=== PATIENT | male | born 1965 | race Caucasian/White ===

== ENCOUNTER 2019-11-06 17:47 | Emergency (ER) | payer BC, SELFPAY ==
--- NOTE | ~2019-11-06 | CT_ITS ---
CT thoracic lumbar wo con DATE: 11/06/2019 18:44 INDICATION: Fall. Back injury, mid and low back pain TECHNIQUE: Axial images were obtained through the thoracic and lumbar spine; sagittal and coronal rec onstructions. Exam dose: 1619.81 mGy-cm total exam DLP. COMPARISON: None FINDINGS: There is mild anterior wedging of T9 and mild/moderate anterior wedging of T10 vertebral kary dies, which appear chronic, likely due to old compression fractures. No other fracture or bone destruction of the thoracic or lumbar spine is evident. No spondylolisthesi s. There are mild degenerative changes of the thoracic and lumbar spine. Incidentally noted is a suture line of the sigmoid colon. The appendix is normal. Normal caliber of t he abdominal aorta. IMPRESSION: Mild to moderate chronic compression fracture deformities of T9 and T10; no recent fractu re of the thoracic or lumbar spine Degenerative changes of the thoracic and lumbar spine Reviewed, dictated and finalized at [facility]. Reviewed, dictated and finalized at location A. IMPRESSION: Mild to moderate chronic compression fracture deformities of T9 and T10; no recent fracture of the thoracic or lumbar spine Degenerative changes of the thoracic and lumbar spine
[2019-11-06 17:50] VITALS: BP 147/69; PULSE 63; RESP 16; TEMP 36.9; O2SAT 99
--- NOTE | 2019-11-06 17:56 | ED.BACK ---
HPI - Back Pain/Injury General Chief Complaint: Back Pain/Injury <Cathleen Ghotra MD - Last Filed: 11/06/19 19:04> Stated Complaint: back pain/injury <Cathleen Ghotra MD - Last Filed: 11/06/19 19:04> Time Seen by Provider: 11/06/19 17:56 <Cathleen Ghotra MD - Last Filed: 11/06/19 19:04> Source: patient <Cathleen Ghotra MD - Last Filed: 11/06/19 19:04> Mode of arrival: ambulatory <Cathleen Ghotra MD - Last Filed: 11/06/19 19:04> Limitations: no limitations <Cathleen Ghotra MD - Last Filed: 11/06/19 19:04> History of Present Illness HPI Narrative: Patient is a 54-year-old male who presents for evaluation of back pain. Patient states he slept well descending 3 steps to get onto a boat, hitting his back on one of the steps or boat railing. Patient denies neck pain, no loss of consciousness. Patient states bruising about the middle back, increased pain with bending. Patient has been ambulatory. No urinary retention or saddle anesthesia. No cancer history. No history of osteoporosis. Patient reports pain is sharp, spasm-like in nature without radiation into the buttocks or flanks. Patient has taken Aleve with minimal improvement. <Cathleen Ghotra MD - Last Filed: 11/06/19 19:04> Related Data Allergies/Adverse Reactions: Allergies Allergy/AdvReac Type Severity Reaction Status Date / Time No Known Allergies Allergy Verified 11/06/19 17:53 <Cathleen Ghotra MD - Last Filed: 11/06/19 19:04> Review of Systems Review of Systems: Narrative: CONSTITUTIONAL: Denies fever CARDIOVASCULAR: Denies chest pain RESPIRATORY: Denies cough or dyspnea. GASTROINTESTINAL: Denies abdominal pain SKIN: Denies rash MUSCULOSKELETAL: Reports middle lower back pain NEUROLOGIC: Denies headache <Cathleen Ghotra MD - Last Filed: 11/06/19 19:04> [facility] Social History Social History: Social History Smoking status: Never smoker Alcohol intake: current <Cathleen Ghotra MD - Last Filed: 11/06/19 19:04> Exam Narrative: Exam Narrative: GENERAL: Awake, alert, conversant HEAD: Normocephalic, atraumatic. EYES: PERRLA and EOMI. ENT: Nares clear, no rhinorrhea or epistaxis. Mucous membranes moist. NECK: Supple. CHEST: No respiratory distress, breathing even and non labored HEART: Regular rate, sinus rhythm ABDOMEN:Non distended, non tender Thorax: Midline lower thoracic and lumbar tenderness over T10-L2. Positive paraspinal tenderness as well. There is ecchymosis over the midline. EXTREMITIES: Normal range of motion. No edema. SKIN: Warm, dry, no rash. NEURO:No focal deficits. Alert and oriented x3. Patient is ambulatory with a narrow based, steady gait. <Cathleen Ghotra MD - Last Filed: 11/06/19 19:04> Course Vital Signs Vital signs: Vital Signs Temperature 98.5 F 11/06/19 17:50 Pulse Rate 63 11/06/19 17:50 Respiratory Rate 16 11/06/19 17:50 Blood Pressure 147/69 H 11/06/19 17:50 Pulse Oximetry 99 11/06/19 17:50 Temperature 98.5 F 11/06/19 17:50 Pulse Rate 63 11/06/19 17:50 Respiratory Rate 16 11/06/19 17:50 Blood Pressure 147/69 H 11/06/19 17:50 Pulse Oximetry 99 11/06/19 17:50 <Cathleen Ghotra MD - Last Filed: 11/06/19 19:04> Vital Signs Temperature 98.5 F 11/06/19 17:50 Pulse Rate 63 11/06/19 17:50 Respiratory Rate 16 11/06/19 17:50 Blood Pressure 147/69 H 11/06/19 17:50 Pulse Oximetry 99 11/06/19 17:50 Temperature 98.5 F 11/06/19 17:50 Pulse Rate 63 11/06/19 17:50 Respiratory Rate 16 11/06/19 17:50 Blood Pressure 147/69 H 11/06/19 17:50 Pulse Oximetry 99 11/06/19 17:50 <Bandar Leonard MD - Last Filed: 11/06/19 19:41> MDM - Back Pain/Injury Imaging Data Radiologist's impression: ITS Impressions Thoracic/Lumbar Spine CT 11/06/19 19:10 IMPRESSION: Mild to moderate chronic compression fracture d
[2019-11-06] MEDS: ACETAMINOPHEN 500 MG TABLET 1000 MG PO (18:08)
[2019-11-06 20:09] VITALS: BP 157/91; PULSE 58; RESP 18; TEMP 37.1; O2SAT 97
== END 2019-11-06 20:10 | disposition home or self-care (01) ==
PROVIDERS: Emergency Provider Emergency Medicine; PCP Internal Medicine
DX: S39.012A Strain of muscle, fascia and tendon of lower back, initial encounter (principal); S22.078A Other fracture of T9-T10 vertebra, initial encounter for closed fracture; W10.8XXA Fall (on) (from) other stairs and steps, initial encounter
CPT/HCPCS: 72128; 72131; 99284; A9270

== ENCOUNTER 2019-11-30 16:34 | Emergency (ER) | payer BC, SELFPAY ==
[2019-11-30 16:43] VITALS: BP 166/92; PULSE 73; RESP 16; TEMP 36.9; O2SAT 99
--- NOTE | 2019-11-30 17:00 | ED.SKABFB ---
HPI - Skin/Abscess/Foreign Bdy General Chief complaint: Skin/Abscess/Foreign Body <Darlene Degroot PA-C - Last Filed: 11/30/19 17:09> Stated complaint: abcess to buttocks <Darlene Degroot PA-C - Last Filed: 11/30/19 17:09> Time Seen by Provider: 11/30/19 16:38 <MARIAH Ragland Last Filed: 11/30/19 17:09> Source: patient <MARIAH Ragland Last Filed: 11/30/19 17:09> Mode of arrival: ambulatory <MARIAH Ragland Last Filed: 11/30/19 17:09> Limitations: no limitations <MARIAH Ragland Last Filed: 11/30/19 17:09> History of Present Illness HPI narrative: This is 54 year old male that presents to the ER for left buttock swelling and redness. Reports he noted the pain over the last couple of days. Reports he has been struggling with constipation and hemorrhoids due to taking prescribed pain medication. Denies fever or drainage. <Darlene Degroot PA-C - Last Filed: 11/30/19 17:09> Related Data Allergies/Adverse reactions: Allergies Allergy/AdvReac Type Severity Reaction Status Date / Time No Known Allergies Allergy Verified 11/30/19 16:49 <Darlene Degroot PA-C - Last Filed: 11/30/19 17:09> Review of Systems Review of Systems: Narrative: CONSTITUTIONAL: Denies fever SKIN: Reports redness <Darlene Degroot PA-C - Last Filed: 11/30/19 17:09> All systems reviewed & are unremarkable except as noted in HPI and below <MARIAH Ragland Last Filed: 11/30/19 17:09> [facility] Social History Social History: Social History Smoking status: Never smoker Alcohol intake: current Gender identity (if verbalized by the patient): Male <MARIAH Ragland Last Filed: 11/30/19 17:09> Exam Narrative: Exam Narrative: GENERAL: Well-appearing, well-nourished, and in no acute distress. HEAD: Normocephalic, atraumatic. EYES: EOMI. EXTREMITIES: Normal range of motion. No edema. SKIN: Warm, dry, no rash. NEURO: No focal deficits. Alert and oriented x3. PSYCH: Normal mood and affect RECTAL: Nonthrombosed external hemorrhoid present, no active bleeding. Left buttock with 5cm area of erythema vianey-rectally, tender to palpation. No central fluctuance to suggest abscess <Darlene Degroot PA-C - Last Filed: 11/30/19 17:09> Course Vital Signs Vital signs: Vital Signs Temperature 36.9 C 11/30/19 16:43 Pulse Rate 73 11/30/19 16:43 Respiratory Rate 16 11/30/19 16:43 Blood Pressure 166/92 H 11/30/19 16:43 Pulse Oximetry 99 11/30/19 16:43 Temperature 36.9 C 11/30/19 16:43 Pulse Rate 63 11/30/19 17:38 Respiratory Rate 16 11/30/19 17:38 Blood Pressure 124/64 11/30/19 17:38 Pulse Oximetry 97 11/30/19 17:38 <Darlene Degroot PA-C - Last Filed: 11/30/19 17:09> Vital Signs Temperature 36.9 C 11/30/19 16:43 Pulse Rate 73 11/30/19 16:43 Respiratory Rate 16 11/30/19 16:43 Blood Pressure 166/92 H 11/30/19 16:43 Pulse Oximetry 99 11/30/19 16:43 Temperature 36.9 C 11/30/19 16:43 Pulse Rate 63 11/30/19 17:38 Respiratory Rate 16 11/30/19 17:38 Blood Pressure 124/64 11/30/19 17:38 Pulse Oximetry 97 11/30/19 17:38 <Estuardo Delgado MD - Last Filed: 12/01/19 07:07> MDM - Skin/Abscess/Foreign Bdy MDM Narrative Medical decision making narrative: Patient presents to the emergency department for cellulitis to the left buttock. No central fluctuance or evidence of abscess at this time. He is afebrile and nontoxic-appearing. Patient will be started on oral antibiotics. He is to follow-up with primary care doctor. He was given warnings to return the ER <Darlene Degroot PA-C - Last Filed: 11/30/19 17:09> Critical Care Time Critical Care Time Critical Care Time: No <Darlene Degroot PA-C - Last Filed: 11/30/19 17:09> Discharge Plan Discharge Clinical Impression: Cellulitis <Darlene Degroot
[2019-11-30 17:38] VITALS: BP 124/64; PULSE 63; RESP 16; O2SAT 97
== END 2019-11-30 17:47 | disposition home or self-care (01) ==
PROVIDERS: Emergency Provider Emergency Medicine; PCP Internal Medicine
DX: L02.31 Cutaneous abscess of buttock (principal)
CPT/HCPCS: 99283

== ENCOUNTER 2020-03-06 11:04 | Outpatient (CLI) | payer BC, SELFPAY ==
--- NOTE | ~2020-03-06 | US_ITS ---
EXAMINATION: US pelvic limited INDICATION: Pelvic and perineal pain TECHNIQUE: High-resolution ultrasound of the pelvis is performed. COMPARISON: None available FINDINGS: No sonographically detected mass is identified. There is no evidence of herniation in the a rajat of the left pelvic scar near the patient's pain. The bladder appears unremarkable. IMPRESSION: 1. No sonographic correlate for the patient's symptoms. Reviewed, dictated and finalized at location [facility]. RA STORAGE CLERK
== END 2020-03-06 11:05 | disposition home or self-care (01) ==
PROVIDERS: PCP Internal Medicine; Visit Provider Physician Assistant
DX: R10.2 Pelvic and perineal pain (principal)
CPT/HCPCS: 76857

== ENCOUNTER 2020-03-29 06:54 | Outpatient (NON) | payer BC, SELFPAY ==
[2020-03-31 00:20] LABS: SARS-CoV-2 RNA PCR Negative
== END 2020-03-29 06:55 ==
LOC: ANHCOVIDDT 07:02
PROVIDERS: PCP Internal Medicine; Visit Provider Internal Medicine
DX: Z20.822 Contact with and (suspected) exposure to COVID-19 (principal)
CPT/HCPCS: C9803; U0003; U0005

== ENCOUNTER → 2020-04-26 09:25 | Outpatient (CLI) | payer BC, SELFPAY ==
[2020-04-26 21:58] LABS: SARS-CoV-2 RNA PCR Negative
== END ==
PROVIDERS: PCP Internal Medicine; Visit Provider Physician Assistant
DX: Z20.822 Contact with and (suspected) exposure to COVID-19 (principal)
CPT/HCPCS: C9803; U0003; U0005

== ENCOUNTER 2020-07-09 15:48 | Outpatient (CLI) | payer BC, SELFPAY ==
--- NOTE | ~2020-07-09 | XR_ITS ---
EXAMINATION: XR knee LT 3V DATE: 07/09/2020 16:09 INDICATION: Left knee joint effusion. TECHNIQUE: 3 views of left knee were obtained. COMPARISON: None. FINDINGS: Bone alignment is normal. No fracture. There is mild tricompartmental osteoarthritis charac terized by tiny marginal osteophytes. No knee joint effusion. There is prepatellar soft tissue swelli ng, consistent with bursitis. IMPRESSION: 1. Mild left knee osteoarthritis. 2. Prepatellar bursitis. Reviewed, dictated and finalized at location A.
--- NOTE | ~2020-07-09 | XR_ITS ---
EXAMINATION: XR finger 1st RT min 2V DATE: 07/09/2020 16:10 INDICATION: Pain at the proximal right thumb TECHNIQUE: Dorsal palmar, lateral and oblique views of the right first digit were obtained COMPARISON: None FINDINGS: Alignment is normal. No fracture. Mild osteoarthritis at the triscaphe, first carpometacarpal and fir st metacarpophalangeal joints. No cortical erosions. Small bone island at the base of the second midd le phalanx. Mild soft tissue swelling about the head of the first metacarpal. IMPRESSION: 1. Mild osteoarthritis at the triscaphe, first carpometacarpal and first metacarpophalangeal joints. Reviewed, dictated and finalized at location A. IMPRESSION: 1. Mild osteoarthritis at the triscaphe, first carpometacarpal and first metaca rpophalangeal joints.
== END 2020-07-09 15:49 | disposition home or self-care (01) ==
PROVIDERS: PCP Internal Medicine; Visit Provider Physician Assistant
DX: M25.462 Effusion, left knee (principal); M79.644 Pain in right finger(s); M17.12 Unilateral primary osteoarthritis, left knee; M71.562 Other bursitis, not elsewhere classified, left knee; M19.041 Primary osteoarthritis, right hand
CPT/HCPCS: 73140; 73562

== ENCOUNTER 2020-08-04 10:49 | Emergency (ER) | payer BC, SELFPAY ==
--- NOTE | 2020-08-04 11:00 | ED.GENADULT ---
HPI - General Adult General Chief complaint: Upper Respiratory Infection Stated complaint: sinus infection Time Seen by Provider: 08/04/20 11:00 Source: patient Mode of arrival: ambulatory Limitations: no limitations History of Present Illness HPI narrative: Wilver Pettit is a 55 yo male with a PMH of asthma who comes to [facility] with complaints of sinus congestion, and pain in frontal sinuses that he has been trying to manage since the beginning of July. Symptoms not improved in so he decided to be seen. He has been experiencing some exhaustion over the past 2 weeks also Related Data Home Medications Medication Instructions Recorded Confirmed fluticasone propion-salmeterol 1 inh INHALATION Q12H 08/04/20 08/04/20 [Advair Diskus] trazodone 150 mg PO HS 08/04/20 08/04/20 Allergies Allergy/AdvReac Type Severity Reaction Status Date / Time No Known Allergies Allergy Verified 07/09/20 11:07 Review of Systems Review of Systems: Narrative: CONSTITUTIONAL: Denies fever, chills, sweats. EYES: Denies visual changes, redness, discharge. ENT: Has rhinorrhea, has congestion, frontal sinus pain,sore throat, otalgia. CARDIOVASCULAR: Denies chest pain, palpitations, edema. RESPIRATORY: Denies dyspnea, wheezing, cough GASTROINTESTINAL: Denies abdominal pain, nausea, vomiting, diarrhea. GENITOURINARY: Denies dysuria, hematuria, abnormal discharge SKIN: Denies rash or itching. NEUROLOGIC: Denies numbness, or focal weakness. PSYCHIATRIC: Denies anxiety or depression. [facility] Past Medical History Medical History (Updated 08/04/20 @ 11:36 by Mary Hutchins CNP) Bradycardia Fracture of lumbar spine Gastro-esophageal reflux disease without esophagitis Hyperglycemia Perianal abscess Uncomplicated asthma Family History Family History Father Family history of liver disease Patient's father is Mother Family history of diabetes mellitus in first degree relative Social History Social History Smoking status: Never smoker Alcohol intake: current Gender identity (if verbalized by the patient): Male Comments At time of signature, I agree with nursing past medical, surgical, social and family history. There is no relevant family history pertinent to the presenting complaint. Exam Narrative: Exam Narrative: GENERAL: This is a well-nourished, well-developed patient, in mild distress. HEAD: normocephalic, atraumatic. EYES: Sclera clear/white. Vision is grossly intact. EARS: External ears normal, auditory canals clear and without drainage, TMs-fluid behind TMs. Hearing grossly intact. NOSE: External nose normal without nasal discharge, nares with redness, has rhinorrhea. THROAT: Mucous membranes moist, posterior pharynx erythema, sinus drainage NECK: Neck supple, CARDIOVASCULAR: Bradycardic rate and rhythm without murmurs, gallops, or rubs. RESPIRATORY: Clear to auscultation. Breath sounds equal bilaterally. No wheezes, rales, or rhonchi. GASTROINTESTINAL: Abdomen soft, non-tender, SKIN: warm, intact with no suspicious lesions or rash, good texture and turgor. NEURO: awake, alert, and oriented to person, place and time. There were no obvious focal neurologic abnormalities. Steady gait EXTREMITIES: Normal range of motion. BACK: Nontender without deformity Course Course Emergency Course: Patient comes [facility] with complaints of sinus congestion and frontal sinus pain that started the beginning of July and is continued to worsen he is experiencing exhaustion and feels need to get medication patient has Advair that he uses daily and during seasons where his allergies are worse, and has an albuterol rescue inhaler Started on Augmentin 1 twice daily x10 days with supplemental Flonase twice daily x1 week Discussed patient's bradycardia in detail along with the symptoms of dizziness that
[2020-08-04 11:01] VITALS: BP 120/61; PULSE 44; RESP 18; TEMP 36.6; O2SAT 99
== END 2020-08-04 11:32 | disposition home or self-care (01) ==
PROVIDERS: Emergency Provider Nurse Practitioner; PCP Internal Medicine
DX: J01.10 Acute frontal sinusitis, unspecified (principal); K21.9 Gastro-esophageal reflux disease without esophagitis
CPT/HCPCS: 99213; G0463

== ENCOUNTER 2020-11-02 17:45 | Emergency (ER) | payer BC, SELFPAY ==
--- NOTE | ~2020-11-02 | XR_ITS ---
XR finger 1st LT min 2V DATE: 11/02/2020 18:35 INDICATION: Left first digit pain for 45 days, worsening TECHNIQUE: 3 views COMPARISON: None FINDINGS: There is mild osteoarthritis at the first carpometacarpal joint. No fracture or dislocation, periosteal reaction or bone destruction. First metacarpophalangeal and in terphalangeal joint spaces are preserved. IMPRESSION: Mild osteoarthritis at first carpometacarpal joint Reviewed, dictated and finalized at location A.
[2020-11-02 18:08] VITALS: BP 115/78; PULSE 73; RESP 18; TEMP 37.3; O2SAT 99
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
== END 2020-11-02 19:22 | disposition home or self-care (01) ==
PROVIDERS: Emergency Provider Emergency Medicine; PCP Internal Medicine
DX: M18.9 Osteoarthritis of first carpometacarpal joint, unspecified (principal); K21.9 Gastro-esophageal reflux disease without esophagitis
CPT/HCPCS: 73140; 99213; G0463

== ENCOUNTER 2021-05-12 10:11 | Emergency (ER) | payer BC, SELFPAY ==
--- NOTE | ~2021-05-12 | XR_ITS ---
EXAMINATION: XR chest 2V EXAM DATE: 05/12/2021 10:38 INDICATION: Cough x2 months . TECHNIQUE: Frontal and lateral projections of the chest obtained and reviewed. Comparison is made to prior examination from 01/25/2019. FINDINGS: The lungs are clear. There are no pleural effusions. The cardiomediastinal silhouette is within normal limits. There is no pneumothorax suspected. The bones and soft tissues are unremarkab le. IMPRESSION: No acute cardiopulmonary findings. Reviewed, dictated and finalized at location A. ER SUPERVISOR
[2021-05-12 10:21] VITALS: BP 119/71; PULSE 56; RESP 18; TEMP 36.6; O2SAT 99
--- NOTE | 2021-05-12 10:30 | ED.GENADULT ---
HPI - General Adult General Chief complaint: Upper Respiratory Infection Stated complaint: Chest Congestion,Shortness of Breath Source: patient Mode of arrival: ambulatory Limitations: no limitations History of Present Illness HPI narrative: Patient is a 55-year-old male with history significant for asthma who presents to the [facility] via POV for evaluation of shortness of breath that began a few weeks ago. He also reports a lingering productive cough and feeling lung spasms . Sputum production is small in quantity and thick and white in color. He believes he had COVID in Mar 2021 although never tested to confirm. Stating, I am not a testing type aziza. If you are sick you are sick. What are ya gonna do about it . No improvement with Mucinex or using Albuterol. He did have COVID exposure at a work [employer] party to approx. 15 people that tested positive a short time after [employer]. He was fully vaccinated against COVID-23 February 2021. Related Data Home Medications Medication Instructions Recorded Confirmed albuterol sulfate 2 puff INHALATION PRN PRN 05/12/21 05/12/21 trazodone 50 mg PO HS PRN 05/12/21 05/12/21 Allergies Allergy/AdvReac Type Severity Reaction Status Date / Time No Known Allergies Allergy Verified 11/02/20 18:22 Review of Systems Review of Systems: Denies history of COPD, bronchitis, and pneumonia. Denies current/past tobacco use. Pertinent negatives: fever, sweats, chills, change in appetite, fatigue, skin color changes, headache, nasal congestion/discharge, dizziness, lymphadenopathy, sinus problems, ear pain/drainage, chest pain, heart murmurs, heart palpitations, wheezing, cyanosis, hemoptysis, hoarseness, orthopnea, pleuritic pain, nausea, vomiting, diarrhea, and myalgias. [facility] Past Medical History Medical History (Updated 05/12/21 @ 10:35 by Efrain Wilder, YUNG, BC) Bradycardia Fracture of lumbar spine Gastro-esophageal reflux disease without esophagitis Hyperglycemia Perianal abscess Uncomplicated asthma Family History Family History Father Family history of liver disease Patient's father is Mother Family history of diabetes mellitus in first degree relative Social History Social History Smoking status: Never smoker Alcohol intake: current Gender identity (if verbalized by the patient): Male Comments I have reviewed and agree with the patient's past medical, surgical, social, and family hx as documented by the RN. There is no relevant family history pertinent to the presenting complaint. Exam Narrative: GENERAL: Well-appearing, well-nourished, and in no acute distress. SPEAKING IN FULL COMPLETE SENTENCES. HEAD: Normocephalic, atraumatic. No sinus tenderness or facial swelling appreciated. EYES: PERRLA and EOMI. No evidence of erythema, swelling, or drainage. ENT: Bilateral external ears and ear canals normal. Bilateral TMs are normal.No TM perforation. Nares clear, no rhinorrhea or epistaxis. Bilateral turbinates without erythema/ swelling. Mucous membranes moist and pink. Uvula is midline without erythema and swelling. No evidence of petechial rash, cobblestoning, lesions, ulcers, erythema, swelling, exudates, peritonsillar abscess, tenting, or drooling. Breath odor and voice normal. NECK: Supple. No Lymphadenopathy or nuchal rigidity appreciated. CHEST: Bilateral lung yang are clear to auscultation. No respiratory distress. No evidence of cough or pleuritic cp upon examination. HEART: BRADYCARDIA WITH A RATE OF 56. Regular rhythm. No murmur, gallop, or rub heard. EXTREMITIES: Normal range of motion. No edema. SKIN: Warm, dry, no rash. NEURO: No focal deficits. Alert and oriented x3. Course Course Emergency Course: The patient/guardian displays adequate decision making capability and despite a detailed discussion
== END 2021-05-12 10:54 | disposition home or self-care (01) ==
PROVIDERS: Emergency Provider Nurse Practitioner Family; PCP Internal Medicine
DX: J06.9 Acute upper respiratory infection, unspecified (principal); K21.9 Gastro-esophageal reflux disease without esophagitis
CPT/HCPCS: 71046; 99213; G0463

== ENCOUNTER 2022-09-22 15:11 | Outpatient (CLI) | payer BC, SELFPAY ==
--- NOTE | ~2022-09-22 | CT_ITS ---
Non-contrast CT scan of the Abdomen and Pelvis Clinical indication: Abdominal pain Technique: 2.5 mm axial scans were obtained through the abdomen and pelvis without intravenous or or al contrast. Dose reduction technique was used on this scan by utilizing automated exposure control a nd iterative reconstruction technique. The dose-length product (DLP) was 562.09 mGy-cm. Findings: Images through the lung bases reveal no abnormalities. There is no evidence of renal or ureteral calculi. The kidneys and the ureters are nondilated. The liver, spleen, pancreas, gallbladder, and adrenals appear normal. There is no aortic aneurysm. There is no evidence of bowel obstruction. Sigmoid anastomosis noted. There is minimal haziness and c entral mesentery with small shotty lymph nodes. Images through the pelvis were performed. There is no evidence of ascites or lymphadenopathy. Urinary bladder unremarkable. Prostate gland and seminal vesicles are unremarkable. 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 No other significant findings. Reviewed, dictated and finalized at [facility]. 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 No other significant findings.
== END 2022-09-22 15:12 | disposition home or self-care (01) ==
PROVIDERS: PCP Internal Medicine; Visit Provider Internal Medicine
DX: R10.9 Unspecified abdominal pain (principal)
CPT/HCPCS: 74176

== ENCOUNTER → 2022-11-03 08:55 | Outpatient (CLI) | payer BC, SELFPAY ==
--- NOTE | ~2022-11-03 | CT_ITS ---
CT Scan of the Chest without Contrast: Clinical Indication: Asthma Technique: Contiguous sections were acquired throughout the chest without intravenous contrast. Dose reduction technique was used on this scan by utilizing automated exposure control and iterative recon struction technique. The dose-length product (DLP) was 358.82 mGy-cm. Findings: There is no evidence of any significant mediastinal, hilar or axillary lymphadenopathy. The mediastin al soft tissues appear normal. There is no evidence of pleural or pericardial effusion. The lungs are clear. No pulmonary nodules or infiltrates are noted. Images through the upper abdomen reveal no abnormalities. Probable minimal compression deformities of T9 and T10 are noted. Impression: Clear lungs. Probable minimal compression deformities of T9 and T10. Reviewed, dictated and finalized at location . Impression: Clear lungs. Probable minimal compression deformities of T9 and T10.
== END ==
PROVIDERS: PCP Internal Medicine; Visit Provider Physician Assistant
DX: R06.02 Shortness of breath (principal); J45.909 Unspecified asthma, uncomplicated
CPT/HCPCS: 71250

== ENCOUNTER 2022-11-12 12:41 | Outpatient (CLI) | payer BC, SELFPAY ==
--- NOTE | 2022-11-13 11:16 | WPDPFTINT ---
PFT Procedure Performed PFT Procedure Performed Spirometry with Pre/Post Bronchodilator Plethysmography (Lung Vol) Diffusing Cap (DLCO) Flow Vol Loop PFT Interpretation Lung volumes were measured with the body plethysmography method. Lung volumes are unremarkable. Spirometry showed diminished expiratory flow rates and a diminished FEV1 to FVC ratio of 58%, indicative of obstructive airway disease. Following administration of a bronchodilator there was significant increase in the expiratory flow rates. Lung diffusion capacity is within the normal range at 96% predicted. The flow-volume loop is consistent with obstructive airway disease. Impression: Mild obstructive airway disease with significant response to bronchodilators on this testing. Lung diffusion capacity within the normal range.
== END 2022-11-12 12:42 | disposition home or self-care (01) ==
PROVIDERS: PCP Internal Medicine; Visit Provider Physician Assistant
DX: R06.02 Shortness of breath (principal); J45.909 Unspecified asthma, uncomplicated; R94.2 Abnormal results of pulmonary function studies
CPT/HCPCS: 94060; 94726; 94729

== ENCOUNTER 2022-12-03 01:07 | Day surgery (SDC) | payer BC, SELFPAY ==
[2022-11-19 14:00] VITALS: BMI 28.1
[2022-12-03 08:17] VITALS: BP 134/86; PULSE 57; RESP 18; TEMP 36.4; O2SAT 98; BMI 27.3
[2022-12-03] MEDS: LACTATED RINGERS 1,000 ML 150 ML IV CONT (08:38)
--- NOTE | 2022-12-03 08:48 | PM.HPGS ---
History of Present Illness History of Present Illness Consent: Risks, benefits, and alternatives have been discussed and questions answered. Patient agrees to proceed with procedure. Chief complaint: Dysphagia, history of colon polyps. Narrative: Wilver Waterman III is a 57 year old male Presents for both colonoscopy an EGD. Patient followed by nurse practitioner in the office. He complains of dysphagia with food catching the mid substernal portion the chest. He has multiple intermittent complaints including epigastric pain. He has a history of partial colectomy because of diverticulitis in the past. Continues to complain of incisional discomfort. His bowel habits appear regular normal at present. He states in the past has had colonoscopies and polyps were removed. This was performed elsewhere in old records not available for review. Patient presents today for both colonoscopy and EGD. Review of Systems Review of Systems: Review of systems noncontributory. [facility] Past Medical History Medical History Bradycardia Fracture of lumbar spine Gastro-esophageal reflux disease without esophagitis Hx of colonic polyps Hyperglycemia Left lower quadrant pain Perianal abscess Uncomplicated asthma Family History Family History Father Family history of liver disease Patient's father is Mother Family history of diabetes mellitus in first degree relative Social History Social History Smoking status: Never smoker Alcohol intake: never Alcohol use details: socially Substance use: never Substance use type: does not use Lack of Transportation: No Lack of Food: Never True Current Housing: I Have Housing Concerned About Future Housing: No Difficulty Paying Gas/Electric Bills: No Difficulty Paying for Meds: No Currently Unemployed: No Education: Bachelor's Degree Difficulty w/ Childcare or Family Care: No Living arrangements: with family Occupation/Education: occupation Gender identity (if verbalized by the patient): Male Spiritual care concerns: No Meds Home Medications and Allergies Home Medications Medication Instructions Recorded Confirmed Type trazodone 50 mg tablet See Rx Instructions .Route 06/15/22 11/19/22 Rx .COMPLEX #270 tabs albuterol sulfate 90 mcg/actuation 1 puff inhalation QID PRN 07/31/23 09/14/23 Rx aerosol inhaler shortness of breath or wheezing #25.5 grams Nebulizer & Neb Kit #1 ea 10/20/22 Rx mometasone 100 mcg/actuation HFA 1 inh inhalation BID #13 grams 10/28/22 11/19/22 Rx aerosol inhaler (Asmanex HFA) albuterol sulfate 2.5 mg/3 mL 2.5 mg (3 mL) inhalation Q4-6H PRN 11/13/22 11/19/22 Rx (0.083 %) solution for nebulization shortness of breath or wheezing #180 mL Allergies Allergy/AdvReac Type Severity Reaction Status Date / Time No Known Allergies Allergy Verified 12/02/22 11:11 Vital Signs Vital Signs - 24 hr 12/03/22 08:17 Temperature 97.6 F Pulse Rate 57 L Respiratory Rate 18 Blood Pressure 134/86 Pulse Oximetry 98 Oxygen Delivery Room Air Exam Narrative: Physical exam reveals patient to be alert. Vital signs stable. HEENT exam is unremarkable. Patient is anicteric. Lungs are clear to auscultation and percussion. Heart is without murmur or extra sounds. Abdomen bowel sounds present soft nontender with no organomegaly. Digital external rectal exam normal. Assessment and Plan Assessment and plan (1) Hx of colonic polyps: Code(s): Z86.010 - Personal history of colonic polyps Status: Acute Assessment and Plan: Patient gives a history of colon polyps. History of partial colectomy for diverticulitis. Plan for high-fiber diet further recommendations may be given after endoscopy. (2)
--- NOTE | 2022-12-03 09:19 | WPDANESEPPF ---
Anes - Initial Pre Proc Eval Procedure: Operation Date: 12/03/22 09:30 Proposed Procedures p Esophagogastroduodenoscopy & Colonoscopy - John Dorado MD Date/Time: 12/03/22 09:19 Surgeon: John Dorado MD Pre Op Diagnosis: Dysphagia, history of colon polyps. Patient Data Age: 57 Gender: M Height: 1.78 m Weight: 86.6 kg Last Vital Signs Temp 97.6 F 12/03/22 08:17 Pulse 57 L 12/03/22 08:17 Resp 18 12/03/22 08:17 BP 134/86 12/03/22 08:17 Pulse Ox 98 12/03/22 08:17 O2 Del Method Room Air 12/03/22 08:17 Allergies Allergy/AdvReac Type Severity Reaction Status Date / Time No Known Allergies Allergy Verified 12/02/22 11:11 Home Medications Medication Instructions Recorded Confirmed Type trazodone 50 mg tablet See Rx Instructions .Route 06/15/22 11/19/22 Rx .COMPLEX #270 tabs albuterol sulfate 90 mcg/actuation 1 puff inhalation QID PRN 10/05/22 11/19/22 Rx aerosol inhaler shortness of breath or wheezing #25.5 grams Nebulizer & Neb Kit #1 ea 10/20/22 Rx mometasone 100 mcg/actuation HFA 1 inh inhalation BID #13 grams 10/28/22 11/19/22 Rx aerosol inhaler (Asmanex HFA) albuterol sulfate 2.5 mg/3 mL 2.5 mg (3 mL) inhalation Q4-6H PRN 11/13/22 11/19/22 Rx (0.083 %) solution for nebulization shortness of breath or wheezing #180 mL Patient hx anesthesia problems: none Family hx anesthesia problems: none Results Review: All pre-operative results and documents have been reviewed as part of the pre-operative evaluation. COUNTS INCLUDE 234 BEDS AT THE [facility] Past Medical History Medical History Bradycardia Fracture of lumbar spine Gastro-esophageal reflux disease without esophagitis Hx of colonic polyps Hyperglycemia Left lower quadrant pain Perianal abscess Uncomplicated asthma Family History Family History Father Family history of liver disease Patient's father is Mother Family history of diabetes mellitus in first degree relative Social History Social History Smoking status: Never smoker Alcohol intake: never Alcohol use details: socially Substance use: never Substance use type: does not use Lack of Transportation: No Lack of Food: Never True Current Housing: I Have Housing Concerned About Future Housing: No Difficulty Paying Gas/Electric Bills: No Difficulty Paying for Meds: No Currently Unemployed: No Education: Bachelor's Degree Difficulty w/ Childcare or Family Care: No Living arrangements: with family Occupation/Education: occupation Gender identity (if verbalized by the patient): Male Spiritual care concerns: No Anes - Eval Final PreProcedure Day of Procedure 12/03/22 09:19 Patient weight: normal Heart: regular rate and rhythm Lungs: clear to auscultation Airway: Mallampati scale class II Neurological: alert and oriented Last oral intake: >/= 8 hours ASA classification: II Emergent: no Anesthetic plan: proceed Anesthesia type and monitoring: general GIVS and standard monitoring Results Review: All pre-operative results and documents have been reviewed as part of the pre-operative evaluation. Informed Consent: The patient's anesthetic plan and its attendant risks and benefits were discussed with the patient/family/POA. Questions were solicited and answers provided to the satisfaction of the patient/family/POA.
--- NOTE | 2022-12-03 09:34 | SUR.OPER ---
EGD ended at 926. Colonoscopy began at 932.
[2022-12-03 09:48] VITALS: BP 110/57; PULSE 62; RESP 16; O2SAT 99
[2022-12-03 09:58] VITALS: BP 108/85; PULSE 56; RESP 19; O2SAT 99
[2022-12-03 10:08] VITALS: BP 119/72; PULSE 50; RESP 17; O2SAT 99
--- NOTE | 2022-12-03 10:32 | SUR.PHASEII ---
Pt has questions for Dr. Dorado. Requesting to wait to talk with him.
== END 2022-12-03 10:32 | disposition home or self-care (01) ==
PROVIDERS: PCP Internal Medicine; Visit Provider Internal Medicine Gastroenterology
PROC: 0DJ08ZZ Inspection of Upper Intestinal Tract, Via Natural or Artificial Opening Endoscopic (ICD-10-PCS; CPT 43235; principal; 2022-12-03 09:30)
DX: Z12.11 Encounter for screening for malignant neoplasm of colon (principal); K57.30 Diverticulosis of large intestine without perforation or abscess without bleeding; Z86.010 Personal history of colon polyps; K21.00 Gastro-esophageal reflux disease with esophagitis, without bleeding; Q39.4 Esophageal web; J45.909 Unspecified asthma, uncomplicated; Z79.51 Long term (current) use of inhaled steroids
CPT/HCPCS: 45378; 43450; 43235; J2704; J7120

== ENCOUNTER 2023-03-13 08:29 | Outpatient (CLI) | payer BC, SELFPAY ==
--- NOTE | ~2023-03-13 | XR_ITS ---
Supine and upright views of the abdomen Clinical history: Change in bowel habits Findings: Bowel gas pattern is nonspecific. No evidence for obstruction or free air. No abnormal mass lesion or calcification is seen. Osseous structures are intact. Impression: No significant abnormality is seen. Reviewed, dictated and finalized at [facility]. LIFTER Impression: No significant abnormality is seen.
== END 2023-03-13 08:30 | disposition home or self-care (01) ==
PROVIDERS: PCP Internal Medicine; Visit Provider Physician Assistant
DX: R19.4 Change in bowel habit (principal)
CPT/HCPCS: 74019

== ENCOUNTER 2023-03-18 10:01 | Emergency (ER) | payer BC, SELFPAY ==
[2023-03-18] VITALS (8 sets, daily range): BP systolic 113–134; BP diastolic 72–88; PULSE 46–50; RESP 10–16; TEMP 36.3–36.7; O2SAT 94–97
--- NOTE | 2023-03-18 10:08 | ECG_ITS ---
Measurements Intervals [place] Rate: 50 P: 43 SD: 144 QRS: 8 QRSD: 108 T: -9 QT: 465 QTc: 425 Interpretive Statements SINUS BRADYCARDIA BORDERLINE T WAVE ABNORMALITY- INFRIOR LEADS BORDERLINE ECG NO PREVIOUS ECG AVAILABLE FOR COMPARISON Electronically Signed On 03-18-2023 11:32:01 TESTING MACHINE OPERATOR by Flavio Bloom D.O.
[2023-03-18 10:28] LABS: Basophils Percent Auto 0.9 % (0.2-1.2); Eosinophils Absolute Auto 0.1 K/mm3 (0-0.3); Eosinophils Percent Auto 2.8 % (0-4.4); Hematocrit 42.5 % (42.0-52.0); Hemoglobin 14.2 g/dL (14.0-18.0); Lymphocytes Absolute Auto 1.25 K/mm3 (0.9-3.2); Lymphocytes Percent Auto 28.9 % (18.3-44.2); Mean Corpuscular HGB Conc 33.4 g/dl (32-36); Mean Corpuscular Hemoglobin 29.6 pg (26-34); Mean Corpuscular Volume 88.7 fl (80-100); Mean Platelet Volume 9.8 fl (7.4-10.4); Monocytes Absolute Auto 0.3 K/mm3 (0.1-0.6); Monocytes Percent Auto 7.9 % (2.6-8.5); Neutrophils Absolute Auto 2.6 K/mm3 (1.3-6.7); Neutrophils Percent Auto 59.5 % (45.5-73.1); Platelet Count Result 234 k/mm3 (150-375); Red Blood Count 4.79 M/mm3 (4.6-6.20); Red Cell Distribution Width 12.2 % (11.5-14.5); White Blood Count 4.3 K/mm3 (4.5-10.0)
[2023-03-18 10:37] LABS: Alanine Aminotransferase 35 U/L (6-50); Albumin Level 4.6 g/dL (3.5-5.1); Alkaline Phosphatase 42 U/L (38-126); Anion Gap 8 mmol/L (8-16); Aspartate Amino Transferase 32 U/L (17-59); Bilirubin,Total 0.7 mg/dL (0.2-1.3); Blood Urea Nitrogen 14 mg/dL (9-20); Calcium 9.3 mg/dL (8.4-10.2); Carbon Dioxide 26 mmol/L (22-30); Chloride 103 mmol/L (98-107); Estimated Glomerular Filt Rate > 60; Glucose 127 mg/dL (65-110); Lipase 78 U/L (23-300); Sodium 137 mmol/L (137-145)
[2023-03-18 11:02] LABS: Appearance Urine Clear (Clear); Bacteria Urine None Seen /hpf; Bilirubin Urine Negative (Negative); Blood Urine Negative (Negative); Color Urine Yellow (Yellow); Glucose Urine UA Negative (Negative); Ketones Urine Negative (Negative); Leukocyte Esterase Ur Trace LEU/UL (Negative); Nitrate Urine Negative (Negative); Non Pathogenic Casts 0-2; Protein Urine Negative (Negative); RBC Urine 0-2 /hpf (0-2); Specific Grav Ur 1.017 (1.001-1.035); Squamous Epithelial Cell Urine None seen /hpf (Few); Urobilinogen Urine 0.2 mg/dL (<2.0); WBC Urine 0-5 /hpf; pH Urine 8.5 (5.0-9.0)
[2023-03-18 11:04] LABS: Add Urine Microscopic? YES
--- NOTE | 2023-03-18 11:54 | ED.ABDPAIN ---
HPI - Abdominal Pain General Chief Complaint: Abdominal Pain Stated Complaint: UPPER ABD LUMP X1WK Time Seen by Provider: 03/18/23 10:09 History of Present Illness HPI narrative: Patient is a 57-year-old male who presents ER with noticed bulging from the midline of his upper abdomen over last week. Worse when doing a sit-up. He has also been more gassy than usual. No nausea vomiting or diarrhea. Last normal bowel movement was today. Related Data Allergies Allergy/AdvReac Type Severity Reaction Status Date / Time No Known Allergies Allergy Verified 12/02/22 11:11 Review of Systems Review of Systems: All systems reviewed & are unremarkable except as noted in HPI and below Constitutional: Constitutional: Reports no additional constitutional complaints Cardiovascular: Cardiovascular: Reports no additional cardiovascular complaints Respiratory: Respiratory: Reports no additional respiratory complaints Gastrointestinal: Gastrointestinal: Denies abdominal pain, Reports bloating, Denies diarrhea, Denies nausea and Denies vomiting PMFSH Past Medical History Medical History Bradycardia Fracture of lumbar spine Gastro-esophageal reflux disease without esophagitis Hx of colonic polyps Hyperglycemia Left lower quadrant pain Perianal abscess Uncomplicated asthma Family History Family History Father Family history of liver disease Patient's father is Mother Family history of diabetes mellitus in first degree relative Social History Social History Smoking status: Never smoker Alcohol intake: never Alcohol use details: socially Substance use: never Substance use type: does not use Lack of Transportation: No Lack of Food: Never True Current Housing: I Have Housing Concerned About Future Housing: No Difficulty Paying Gas/Electric Bills: No Difficulty Paying for Meds: No Currently Unemployed: No Education: Bachelor's Degree Difficulty w/ Childcare or Family Care: No Living arrangements: with family Occupation/Education: occupation Gender identity (if verbalized by the patient): Male Spiritual care concerns: No Exam Narrative: GENERAL: Well-appearing, well-nourished, and in no acute distress. HEAD: Normocephalic, atraumatic. ENT: Mucous membranes moist. CHEST: Clear to auscultation. No respiratory distress. HEART: Regular rate and rhythm. Normal peripheral pulses. ABDOMEN: Soft, nontender, nondistended, Subtle ventral hernia without incarceration. EXTREMITIES: Normal range of motion. No edema. SKIN: Warm, dry, no rash. NEURO: Alert and oriented x3. PSYCH: Normal mood and affect. Course Course Emergency Course: labs unremarkable. Will give surgery follow-up should he want evaluation of his ventral hernia. No emergent CT indicated at this time. Vital Signs Vital signs: Vital Signs Temperature 97.4 F L 03/18/23 10:05 Pulse Rate 50 L 03/18/23 10:05 Respiratory Rate 16 03/18/23 10:05 Blood Pressure 134/76 03/18/23 10:05 Pulse Oximetry 97 03/18/23 10:05 Oxygen Delivery Room Air 03/18/23 10:05 Temperature 97.7 F 03/18/23 10:31 Pulse Rate 49 L 03/18/23 10:46 Respiratory Rate 16 03/18/23 10:46 Blood Pressure 122/76 03/18/23 10:46 Pulse Oximetry 95 03/18/23 10:46 Oxygen Delivery Room Air 03/18/23 10:05 MDM - Abdominal Pain Lab Data 03/18/23 10:22 03/18/23 10:22 Labs: Lab Results 03/18/23 03/18/23 Range/Units 10:22 10:49 WBC 4.3 L (4.5-10.0) K/mm3 RBC 4.79 (4.6-6.20) M/mm3 Hgb 14.2 (14.0-18.0) g/dL Hct 42.5 (42.0-52.0) % MCV 88.7 (80-100) fl MCH 29.6 (26-34) pg MCHC 33.4 (32-36) g/dl RDW 12.2 (11.5-14.5) % Plt Count 234 (150-375) k/mm3 MPV 9.8
== END 2023-03-18 12:17 | disposition home or self-care (01) ==
PROVIDERS: Emergency Provider Emergency Medicine; PCP Internal Medicine
DX: K43.9 Ventral hernia without obstruction or gangrene (principal); J45.909 Unspecified asthma, uncomplicated; K21.9 Gastro-esophageal reflux disease without esophagitis; Z86.010 Personal history of colon polyps; R00.1 Bradycardia, unspecified; R94.31 Abnormal electrocardiogram [ECG] [EKG]
CPT/HCPCS: 36415; 80053; 81001; 83690; 85025; 93005; 99283

== ENCOUNTER 2023-04-16 07:08 | Outpatient (CLI) | payer BC, SELFPAY ==
--- NOTE | ~2023-04-16 | CT_ITS ---
CT of the Abdomen: Indication: Epigastric pain Technique: 2.5 mm axial scans were obtained through the abdomen following intravenous administration of 100 cc of Omnipaque 350. Dose reduction technique was used on this scan by utilizing automated ex posure control and iterative reconstruction technique. The dose-length product (DLP) was 519.62 mGy-c m. COMPARISON: 09/22/2022 Findings: Scans through the lung bases are unremarkable. The liver, spleen, pancreas, gallbladder, adrenals and kidneys are within normal limits. No evidence of aortic aneurysm. No lymphadenopathy. There is minimal haziness in the central mesentery. No bowel obstruction evident. No ascites. 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 Reviewed, dictated and finalized at location . 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
== END 2023-04-16 07:09 | disposition home or self-care (01) ==
PROVIDERS: PCP Internal Medicine; Visit Provider Physician Assistant
DX: R10.9 Unspecified abdominal pain (principal)
CPT/HCPCS: 74160; Q9967

== ENCOUNTER 2023-08-28 09:30 | Outpatient (CLI) | payer BC, SELFPAY ==
--- NOTE | ~2023-08-28 | US_ITS ---
EXAMINATION: US soft tissue LE RT DATE: 08/28/2023 09:49 INDICATION: Pain and swelling at the right popliteal fossa TECHNIQUE: Multiple grayscale and Doppler ultrasound images of the right popliteal fossa were obtaine dDaryn COMPARISON: None FINDINGS/IMPRESSION: 3.8 x 1.6 x 0.7 cm anechoic Simon's cyst with typical appearance and location at the right popliteal fossa. Reviewed, dictated and finalized at location A.
== END 2023-08-28 09:31 ==
LOC: MICIMG 09:31
PROVIDERS: PCP Internal Medicine; Visit Provider Internal Medicine
DX: M71.21 Synovial cyst of popliteal space [Baker], right knee (principal)
CPT/HCPCS: 76882

== ENCOUNTER 2023-12-06 09:15 | Outpatient (RCR) | payer OTHER, SELFPAY | END 2024-01-19 23:59 | disposition home or self-care (01) | LOC: ANHDMC 09:15 | PROVIDERS: PCP Internal Medicine; Visit Provider Internal Medicine | DX: E11.9 Type 2 diabetes mellitus without complications (principal); Z71.89 Other specified counseling | CPT/HCPCS: G0108 ==

== ENCOUNTER 2024-04-16 11:07 | Emergency (ER) | payer OTHER, SELFPAY ==
--- NOTE | ~2024-04-16 | XR_ITS ---
CHEST RADIOGRAPH, PA AND LATERAL CLINICAL HISTORY: Coarse LS bilateral bases and wheezing full yang . COMPARISON: 05/12/2021 TECHNIQUE: PA and lateral views of the chest. FINDINGS The cardiomediastinal silhouette is unremarkable. Blunting of the bilateral costophrenic sulci suggesting small bilateral pleural effusions, confirmed on lateral view. Trace peribronchial thickening. The remainder of the lungs are clear. IMPRESSION: Trace peribronchial thickening with small bilateral pleural effusions. No focal infiltrate. Reviewed, dictated and finalized at location A. TABLE II FARMWORKER
--- OUTSIDE RECORDS SUMMARY | 2024-04-16 11:10 | XMS_ITS | Patient Health Summary ---
Author Organization [facility] Address [address] [place] [address] Care Team Providers Care Featheredger And Reducer Machine Name Role Phone Unavailable Primary Care Provider Unavailabl e Note from [facility],non-owned Affiliates and Associated Physician Practices is amultiple site organization consisting of ambulatory clinics and hospital sitesin [place], [place], [place] and [place]. This disclosure is being madepursuant to the Care Everywhere program and may not contain all information available regarding this patient. Last updated 17.[facility] Medications * Be aware that medications may not be up to date on this document. Alwaysverify current medications with the patient. * sodium sulfate-mag sulfate-KCl (Sutab) 0843-514-711 MG tablet(Started 09/15/2022) Take 12 tablets for first dose and 12 tablets for second according to instructions in package. Social History Tobacco Use Types Packs/Day Years Used Date Smoking Tobacco: Never Assessed Sex and Gender Information Value Date Recorded Sex Assigned at Not on file Gender Identity Not on file Sexual Orientation Not on file Procedures * COLONOSCOPY(Performed 04/19/2020) Results * COLONOSCOPY (04/19/2020) Historical Provider SCANNING ONLY
--- OUTSIDE RECORDS SUMMARY | 2024-04-16 11:10 | XMS_ITS | Encounter Summary ---
Author Organization [facility] Address [facility] [place] [address] Care Team Providers Care Pocket Setter Lockstitch Name Role Phone Oscar Cesar MD Primary Care Provider Encounter Details Date Type Department Care Team (Late st Contact Info) Description 04/09/2020 Prep for Procedure [facility] [address] [place] [address] Elda Marx MD [address] [facility] [address] [place] [address] Social History Tobacco Use Types Packs/Day Years Used Date Smoking Tobacco: Never Smokeless Tobacco: Never Sex and Gender Information Value Date Recorded Sex Assigned at Not on file Legal Sex Male 2:19 PM CDT Gender Identity Not on file Sexual Orientation Not on file COVID-19 Exposure Response Date Recorded In the last month, have you been in contact with someone who was confirmed or suspected to have Coronavirus / COVID-19? No / Unsure 03/22/2020 9:10 AM INTERPRETIVE PROGRAM COORDINATOR documented as of this encounter Functional Status * RETIRED Are you deaf or do you have serious difficulty hearing Answer Date of Assessment Author Status No 12/04/2019 5:18 PM CDT Activ e * RETIRED Are you blind or do you have serious difficulty seeing, even when wearing glasses? Answer Date of Assessment Author Status No 12/04/2019 5:18 PM CDT Activ e * Do you have serious difficulty walking or climbing stairs? Answer Date of Assessment Author Status No 12/04/2019 5:18 PM Sharlene Musa RN Active * Do you have difficulty dressing or bathing? Answer Date of Assessment Author Status No 12/04/2019 5:18 PM Sharlene Musa RN Active * Because of a physical, mental, or emotional condition, do you have difficulty doing errands alone such as visiting a doctor's office or shopping? Answer Date of Assessment Author Status No 12/04/2019 5:18 PM Sharlene Musa RN Active documented as of this encounter Mental Status * Because of a physical, mental, or emotional condition, do you have serious difficulty concentrating, remembering, or making decisions? Answer Entry Date Author Status No 12/04/2019 5:18 PM Sharlene Musa RN Active documented in this encounter Plan of Treatment Not on file documented as of this encounter Goals Goal Patient Goal Type Associated Problems Recent Progress Patient-Stated? Author HOME TO [facility] No Joan Herrera RN documented as of this encounter Results * PRE-SURGICAL/PRE-PROCEDURE CORONAVIRUS (COVID 19) (04/16/2020 8:58 AM INTERPRETIVE PROGRAM COORDINATOR) CORONAVIRUS SARS COV 2 PCR (RESP) NOT DETECTED NOT DETECTED 04/17/2020 3:31 PM INTERPRETIVE PROGRAM COORDINATOR [facility] Comment: A Not Detected (negative) test result for this test means that SARS- CoV-2 RNA was not present in the specimen above the limit of detection. A negative result does not rule out the possibility of COVID-19 and should not be used as the sole basis for treatment or patient management decisions. If COVID-19 is still suspected, based on exposure history together with other clinical findings, re-testing should be considered in consultation with public health authorities. Laboratory test results should always be considered in the context of clinical observations and epidemiological data in making a final diagnosis and patient management decisions. Please review the Fact Sheets and FDA authorized labeling available for health care providers and patients using the following websites: [email or web address]/[email or web address]/fact-sheet2 [email or web address]/home/[email or web address]/Patients/NAAT/ fact-sheet2 This test has been authorized by the FDA under an Emergency Use Authorization (EUA) for use by authorized laboratories. Due to the current public health emergency, [employer] is receiving a high volume of samples from a wide variety of swabs and media for COVID-19 testing. In order to serve patients during this public health crisis, samples from appropriate clinical sources are being tested. Negative test results derived from specimens received in non-commercially manufactured viral collection and transport media, or in media and sample collection kits not yet authorized by FDA for COVID-19 testing should be cautiously evaluated and the patient potentially subjected to extra precautions such as additional clinical monitoring, including collection of an additional specimen. Methodology: Nucleic Acid Amplification Test (NAAT) includes RT-PCR or TMA Additional information about COVID-19 can be found at the [employer] website: www.FusionOps/Covid19. Test performed at [facility] [address] [place] [address] Director: LIZETH GOLDBERG DO,MPH FIRST TEST NO 04/16/2020 8:49 AM [facility] EMPLOYED IN HEALTHCARE NO 04/16/2020 8:49 AM [facility] SYMPTOMATIC DEFINED BY CDC NO 04/16/2020 8:49 AM [facility] DATE OF SYMPTOM ONSET UNKNOWN 04/16/2020 11:09 AM [facility] HOSPITALIZATION STATUS NO 04/16/2020 8:49 AM [facility] PATIENT IN ICU NO 04/16/2020 8:49 AM [facility] RESIDENT OF [facility] NO 04/16/2020 8:49 AM [facility] UNKNOWN 04/16/2020 11:09 AM [facility] PATIENT'S RACE WHITE OR 04/16/2020 8:49 AM [facility] ETHNICITY NONHISPANIC 04/16/2020 8:49 AM [facility] SOURCE (QST) NASOPHARYNGEAL SWAB 04/16/2020 8:49 AM INTERPRETIVE PROGRAM COORDINATOR [facility] NASOPHARYNGEAL SWAB / Unknown 04/16/2020 8:58 AM INTERPRETIVE PROGRAM COORDINATOR us Elda Marx MD MICROBIOLOGY - GENERAL ORDER ASIM Final Result [facility] [address] [place] [address], [facility] [address] [place] [address], documented in this encounter Visit Diagnoses Diagnosis Preop testing- Primary Preoperative examination, unspecified documented in this encounter Additional Health Concerns Infection Onset Date Last Indicated Resolved Time COVID-19 Rule Out 04/16/2020 04/16/2020 04/17/2020 3:31 PM INTERPRETIVE PROGRAM COORDINATOR documented as of this encounter Care Teams Pocket Setter Lockstitch Relationship Specialty Start Date End Date Oscar Cesar MD [address] [place] [address] [address] PCP - General INTERNAL MEDICINE 12/01/19 documented as of this encounter
--- OUTSIDE RECORDS SUMMARY | 2024-04-16 11:10 | XMS_ITS | Clinical Summary ---
Author Organization [facility] Address [address] [place] [address] Care Team Providers Care Chicken Vaccinator Name Role Phone Unavailable Primary Care Provider Unavailabl e Source Comments [facility],non-owned Affiliates and Associated Physician Practices is amultiple site organization consisting of ambulatory clinics and hospital sitesin [place], [place], [place] and [place]. This disclosure is being madepursuant to the Care Everywhere program and may not contain all information available regarding this patient. Last updated 17.[facility] Medications * Be aware that medications may not be up to date on this document. Alwaysverify current medications with the patient. Medication Sig Dispensed Refills Start Date End Date Status sodium sulfate-mag sulfate-KCl (Sutab) 7993-809-612 MG tabletIndications:En counter for screening colonoscopy Take 12 tablets for first dose and 12 tablets for second according to instructions in package. 1 kit 09/15/2022 Active Social History Tobacco Use Types Packs/Day Years Used Date Smoking Tobacco: Never Assessed Sex and Gender Information Value Date Recorded Sex Assigned at Not on file Gender Identity Not on file Sexual Orientation Not on file Plan of Treatment Health Maintenance Due Date Last Done Comments COLOGUARD (AGES 45-75) - COL ON CA SCREENING 1965 CT COLONOGRAPHY - COLON CA SCREENING 1965 FIT - COLON CA SCREENING 1965 FLEX SIG - COLON CA SCREENING 1965 LIPID TESTING 1965 HIV SCREENING 1980 HEPATITIS C SCREENING 07/09/1983 DTAP/TDAP/TD VACCINES (1 - Tdap) 1984 HEPATITIS B VACCINE (1 of 3 - 19+ 3-dose series) 1984 PNEUMOCOCCAL VACCINE 50+ (1 of 1 - PCV) 07/14/2015 ZOSTER VACCINE (1 of 2) 07/14/2015 COVID-19 VACCINE (2023-2 5 season) 2023 INFLUENZA VACCINE (#1) 2023 DEPRESSION SCREENING 03/08/2024 COLON MONITORING 04/19/2030 04/19/2020 COLONOSCOPY - COLON CA SCREENING 04/19/2030 04/19/19 21 Colorectal Cancer Screening 04/19/2030 HIB VACCINE Aged Out No longer eligi ble based on patient's age to complete this topic HPV VACCINE Aged Out No longer eligi ble based on patient's age to complete this topic MENINGOCOCCAL (Group B) VACCINE Aged Out No longer eligible based on patient's age to complete this topic MENINGOCOCCAL VACCINE Aged Out No cat willi eligible based on patient's age to complete this topic PNEUMOCOCCAL VACCINE Aged Out No long er eligible based on patient's age to complete this topic Procedures Procedure Name Priority Date/Time Associated Diagnosis Comments COLONOSCOPY Routine 04/19/2020 from Last 3 Months or Most Recently Relevant to Health Maintenance Results * COLONOSCOPY (04/19/2020) Historical Provider MD SCANNING ONLY from Last 3 Months or Most Recently Relevant to Health Maintenance
--- OUTSIDE RECORDS SUMMARY | 2024-04-16 11:10 | XMS_ITS | Clinical Summary ---
Author Organization [facility] Address [address] [place] [address] Care Team Providers Care Form Block Maker Name Role Phone Oscar Cesar MD Primary Care Provider [phone] Allergies Active Allergy Reactions Criticality Noted Date Comments Amoxicillin-Pot Clavulanate Rash Low 12/22/19 20 Medications traZODone 150 MG tablet Take 150 mg by mouth nightly at bedtime. Active albuterol sulfate HFA 108 (90 Base) MCG/ACT inhaler Inhale 2 puffs into the lungs every 6 (six) hours as needed for Wheezing. Active fluticasone-farideh meterol 250-50 MCG/DOSE inhaler Inhale 1 puff into the lungs 2 (two) times daily. Active cetirizine 10 MG tablet Take 10 mg by mouth daily as needed for Allergies. Active docusate sodium 100 MG capsule Take 200 mg by mouth nightly at bedtime. Active tamsulosin 0.4 MG Cap Take 1 capsule (0.4 mg total) by mouth daily. 30 capsule 12/05/2019 Active bisacodyl EC 5 MG Tab EC tablet Take 2 tablets (10 mg total) by mouth 2 (two) times daily. at bedtime. 60 tablet 12/04/2019 Active Active Problems Problem Noted Date Diagnosed Date Screening for colon cancer 04/05/2020 Overview (04/05/2020): Added automatically from request for surgery [id number] Perirectal abscess 12/11/2019 Family History Medical History Relation Comments Heart Disease Mother Hypertension Mother Relation Status Comments Father cirrhosis Mother Afib Social History Tobacco Use Types Packs/Day Years Used Date Smoking Tobacco: Never Smokeless Tobacco: Never Sex and Gender Information Value Date Recorded Sex Assigned at Not on file Legal Sex Male 2:19 PM CDT Gender Identity Not on file Sexual Orientation Not on file Last Filed Vital Signs Vital Sign Reading Time Taken Comments Blood Pressure 134/88 04/26/2020 3:29 PM SALESPERSON [employer]IAL [employer]S Pulse 52 04/26/2020 3:29 PM SALESPERSON [employer] Temperature 36.2 C (97.2 F) 04/26/2020 3:29 PM SALESPERSON [employer] Respiratory Rate 20 04/26/2020 3:29 PM SALESPERSON [employer] Oxygen Saturation 99% 04/26/2020 3:29 PM SALESPERSON [employer] Inhaled Oxygen Concentration - - Weight 88 kg (194 lb) 04/26/2020 3:29 PM SALESPERSON [employer] Height 177.8 cm (5' 10 ) 04/26/2020 3:29 PM SALESPERSON [employer] Body Mass Index 27.84 04/26/2020 3:29 PM SALESPERSON [employer] Plan of Treatment Health Maintenance Due Date Last Done Comments Annual Physical 1968 Hepatitis C 07/14/1983 DTaP, Tdap and Td Vaccines ( 1 - Tdap) 1984 Hepatitis B Vaccines (1 of 3 - 19+ 3-dose series) 1984 Zoster Vaccines (1 of 2) 07/14/2015 COVID-19 Vaccine (2023-2 5 season) 2023 Influenza Adult (#1) 2023 Colorectal Cancer Screening Colonoscopy (10 Years) 04/19/2030 04/19/2020, 04/19/2020 Meningococcal B Vaccine Aged Out No l onger eligible based on patient's age to complete this topic Meningococcal Vaccine Aged Out No cat willi eligible based on patient's age to complete this topic Pneumococcal Vaccine: Pediatrics (0 to 5 Years) and At-Risk Patients (6 to 64 Years) Aged Out No longer eligible b ased on patient's age to complete this topic RSV Immunizations Under 20 Months Aged Out No longer eligible b ased on patient's age to complete this topic Goals Goal Patient Goal Type Associated Problems Recent Progress Patient-Stated? Author HOME TO [facility] No Joan Herrera RN Procedures Procedure Name Priority Date/Time Associated Diagnosis Comments COLONOSCOPY Routine 04/19/2020 9:53 AM SALESPERSON [employer]IAL [employer]S from Last 3 Months or Most Recently Relevant to Health [place] [address] [facility] Advance Directives * Full Code (Latest Code Status on File) Date Activated Date Inactivated Comments 12/01/2019 10:22 PM 12/04/2019 8:46 PM Care Teams Form Block Maker Relationship Specialty Start Date End Date Oscar Cesar MD [address] [place] [address] PCP - General INTERNAL MEDICINE 12/01/19
--- OUTSIDE RECORDS SUMMARY | 2024-04-16 11:10 | XMS_ITS | Referral Summary ---
Author Organization [facility] Address [address] [place] [address] Care Team Providers Care Hazardous Materials Tanker Driver Name Role Phone Unavailable Primary Care Provider Unavailabl e Source Comments [facility],non-owned Affiliates and Associated Physician Practices is amultiple site organization consisting of ambulatory clinics and hospital sitesin [place], [place], [place] and [place]. This disclosure is being madepursuant to the Care Everywhere program and may not contain all information available regarding this patient. Last updated 17.[facility] Medications * Be aware that medications may not be up to date on this document. Alwaysverify current medications with the patient. Medication Sig Dispensed Refills Start Date End Date Status sodium sulfate-mag sulfate-KCl (Sutab) 0871-186-245 MG tabletIndications:En counter for screening colonoscopy Take [...] Orientation Not on file Plan of Treatment Not on file Procedures Procedure Name Priority Date/Time Associated Diagnosis Comments COLONOSCOPY Routine 04/19/2020 from Last 3 Months or Most Recently Relevant to Health Maintenance Results * COLONOSCOPY (04/19/2020) Historical Provider SCANNING ONLY from Last 3 Months or Most Recently Relevant to Health Maintenance
[2024-04-16 11:56] VITALS: BP 131/73; PULSE 59; RESP 18; TEMP 36.6; O2SAT 97
--- NOTE | 2024-04-16 14:14 | ED.GENADULT ---
HPI - General Adult General Chief complaint: Upper Respiratory Infection Stated complaint: cold symptoms and coughing/ hand muscle issue Time Seen by Provider: 04/16/24 14:14 Source: patient Mode of arrival: ambulatory Limitations: no limitations History of Present Illness HPI narrative: Here for cold symptoms and cough. Patient reports productive cough and blood-tinged sputum patient reports history of asthma and wheezing. Patient reports starting to feel sick last week on Wednesday (04/11) patient reports he states that and Wednesday not feeling well reports he is using essential oils. He reports this does not feel like his usual asthma symptoms and does not feel his usual inhalers are improving symptoms. reports a history of diabetes type 2. Related Data Allergies Allergy/AdvReac Type Severity Reaction Status Date / Time No Known Allergies Allergy Verified 10/11/23 07:24 Review of Systems Review of Systems: CONSTITUTIONAL: Denies fever, chills, or sweats. reports he has been feeling sick. EYES: Denies visual changes, redness, or discharge. ENT: Denies rhinorrhea, congestion, sore throat, or otalgia. CARDIOVASCULAR: Denies chest pain, palpitations, or edema. RESPIRATORY: report cough or dyspnea. reports coughing up blood-tinged sputum. Reports wheezing. Reports symptoms not improving with usual asthma regimen. GASTROINTESTINAL: Denies abdominal pain, nausea, vomiting, or diarrhea. GENITOURINARY: Denies dysuria or hematuria. SKIN: Denies rash or itching. MUSCULOSKELETAL: Denies back pain, joint pain, or myalgia. NEUROLOGIC: Denies headache, numbness, or weakness. PSYCHIATRIC: Denies anxiety or depression. All other systems reviewed are negative, except as documented in HPI. [facility] Past Medical History Medical History Bradycardia Fracture of lumbar spine Gastro-esophageal reflux disease without esophagitis Hx of colonic polyps Hyperglycemia Left lower quadrant pain Uncomplicated asthma Surgical History Surgical History History of colon resection Perianal abscess excised Family History Family History Father Family history of liver disease Patient's father is Mother Family history of diabetes mellitus in first degree relative Heart disease Social History Social History Smoking status: Never smoker Alcohol intake: never Alcohol use details: socially Substance use: never Substance use type: does not use Lack of Transportation: No Lack of Food: Never True Current Housing: I Have Housing Concerned About Future Housing: No Difficulty Paying Gas/Electric Bills: No Difficulty Paying for Meds: No Currently Unemployed: No Education: Bachelor's Degree Difficulty w/ Childcare or Family Care: No Living arrangements: with family Occupation/Education: occupation Gender identity (if verbalized by the patient): Male Spiritual care concerns: No Exam Narrative: GENERAL: This is a well-nourished, well-developed patient, in no apparent distress. appears acutely ill. NAD. HEAD: normocephalic, atraumatic. EYES: Sclera clear/white. Vision is grossly intact. EARS: External ears normal. Hearing grossly intact. NOSE: External nose normal with no obvious nasal discharge, nares without redness, no rhinorrhea. THROAT: Mucous membranes moist, posterior pharynx +PND.. NECK: Neck supple. CARDIOVASCULAR: Regular rate and rhythm without murmurs, gallops, or rubs. RESPIRATORY: Coarse lung sounds with expiratory wheezing. wheezing audible without stethoscope. Diminished lung sounds in bases. SKIN: warm, Dry, intact with no suspicious lesions or rash, good texture and turgor. NEURO: awake, alert, and oriented to person, place and time. There were no obvious focal neurologic abnormalities. EXTREMITIES: No joint tenderness, effusion, or edema noted. No calf tenderness. Negative Homans sign bilaterally. Course Course Level of Care: Express Care Visit Reevaluation(s) Reevaluation #1: After breathing treatment at 15:05 LS coarse bilaterally with wheezing. Vital Signs Vital signs: Vital Signs Temperature 36.6 C 04/16/24 11:56 Pulse Rate 59 L 04/16/24 11:56 Respiratory Rate 18 04/16/24 11:56 Blood Pressure 131/73 04/16/24 11:56 Pulse Oximetry 97 04/16/24 11:56 Oxygen Delivery Room Air 04/16/24 11:56 Temperature 36.6 C 04/16/24 11:56 Pulse Rate 75 04/16/24 15:06 Respiratory Rate 18 04/16/24 15:06 Blood Pressure 131/73 02/09/25 11:56 Pulse Oximetry 98 04/16/24 15:06 Oxygen Delivery Room Air 04/16/24 11:56 Medical Decision Making MDM Narrative Medical decision making narrative: fall patient with productive cough and blood-tinged sputum sputum after recent traveling. Patient with asthma symptoms of wheezing however wheezing does not improve with albuterol per patient report. Patient reported he has been feeling sick staying in bed. Patient has been using essential oils without relief of symptoms. X-ray was ordered today and showed bilateral pleural effusions. See radiology report for full details. patient sent to emergency room for further evaluation and treatment of possible PE. Report called from this HOT MOLDER to BRADLEY Gore taking report for Dr. Leach. Vital Signs Vital Signs: Vital Signs Temperature 36.6 C 04/16/24 11:56 Pulse Rate 59 L 04/16/24 11:56 Respiratory Rate 18 04/16/24 11:56 Blood Pressure 131/73 04/16/24 11:56 Pulse Oximetry 97 04/16/24 11:56 Oxygen Delivery Room Air 04/16/24 11:56 Temperature 36.6 C 04/16/24 11:56 Pulse Rate 75 04/16/24 15:06 Respiratory Rate 18 04/16/24 15:06 Blood Pressure 131/73 04/16/24 11:56 Pulse Oximetry 98 04/16/24 15:06 Oxygen Delivery Room Air 04/16/24 11:56 reviewed Discharge Plan Discharge Clinical Impression: Pleural effusion Patient Disposition: Acute Care [facility] Condition: Stable Additional Instructions: Proceed directly to emergency room for further evaluation and treatment. Patient Language: Nepali Prescriptions: No Action (DME) Nebulizer & Neb Kit See Rx Instructions .Route .MEDSUPPLY Qty: 1 0RF Rx Instructions: NEW Nebulizer Portable (E0570) (A7005) Neb Kit Nebulizer Supplies DX: J45.909 Asthma Length of Need: Lifetime BRADLEY Hernandez DME: [employer] [phone] metformin 500 mg tablet 500 mg PO BIDWMEAL Qty: 180 1RF albuterol sulfate 2.5 mg /3 mL (0.083 %) solution for nebulization 2.5 mg inhalation Q4-6H PRN (Reason: shortness of breath or wheezing) Qty: 180 3RF trazodone 50 mg tablet See Rx Instructions .ROUTE .COMPLEX Qty: 270 0RF Dose Instruction: TAKE 3 TABLETS BY MOUTH AT BEDTIME Rx Instructions: TAKE 3 TABLETS BY MOUTH AT BEDTIME albuterol sulfate 90 mcg/actuation HFA aerosol inhaler 1 puff inhalation QID PRN (Reason: shortness of breath or wheezing) Qty: 25.5 4RF Follow-up/Referrals: UNKNOWN,DOCTOR [Primary Care Provider] - Time of Disposition: 15:19
[2024-04-16] MEDS: IPRATROPIUM 0.5 MG/ALBUTEROL SULFATE 2.5 MG AMPUL.NEB 3 ML INHALATION (14:35)
[2024-04-16 15:06] VITALS: PULSE 75; RESP 18; O2SAT 98
== END 2024-04-16 15:19 | disposition short-term general hospital (02) ==
LOC: EXPTROY 11:11
PROVIDERS: Emergency Provider Nurse Practitioner
DX: J90 Pleural effusion, not elsewhere classified (principal); K21.9 Gastro-esophageal reflux disease without esophagitis; J45.909 Unspecified asthma, uncomplicated; E11.9 Type 2 diabetes mellitus without complications
CPT/HCPCS: 71046; 94640; 99213; G0463

== ENCOUNTER 2024-04-16 15:36 | Emergency (ER) | payer OTHER, SELFPAY ==
[2024-04-16] VITALS (17 sets, daily range): BP systolic 147–178; BP diastolic 83–107; PULSE 68–91; RESP 12–20; TEMP 37.4; O2SAT 93–100
--- NOTE | ~2024-04-16 | CT_ITS ---
EXAMINATION: CTA chest PE abdomen pel DATE: 04/16/2024 17:09 PRACTICE ARCHITECT INDICATION: Shortness of breath with positivity for influenza B TECHNIQUE: Computed tomographic angiography (CTA) of the chest was performed, along with multiple con tiguous axial images of the abdomen and pelvis with 100 mL Omnipaque-350 intravenous contrast. The do se-length product was 1018.27 mGy-cm. Maximum intensity projection 3D-reconstructions of the aorta an d other arteries were constructed by the technologist on a separate workstation. FINDINGS/OBSERVATIONS: PULMONARY ARTERIES: No filling defect is identified within the main or proximal pulmonary artery. The main pulmonary artery is not enlarged. THORACIC AORTA: No aneurysmal dilatation or dissection is present. The great vessels are intact LUNGS: The lungs are clear. MEDIASTINUM: No morphologically suspicious or pathologically enlarged lymph nodes are identified with in the mediastinum or bilateral axilla. BONES OF THE CHEST: No acute fracture. No significant degenerative disease. No lytic or blastic lesions. HEART: The heart is of normal size, without pericardial effusion. LIVER: The liver enhances homogeneously without enlargement. GALLBLADDER AND BILIARY SYSTEM: The gallbladder is only minimally distended, and otherwise unremarkable. PANCREAS: The pancreas enhances homogeneously without ductal dilatation. SPLEEN: The spleen enhances homogeneously and is not enlarged measuring 8 cm in longitudinal dimension. KIDNEYS: The bilateral kidneys enhance symmetrically without hydronephrosis or renal calculi. ADRENAL GLANDS: Unremarkable. GASTROINTESTINAL TRACT: Colonic diverticulosis without surrounding inflammatory change. Enteric staple line within the distal colon. Guillermina appearance of the mesentery, a nonspecific finding suggesting venous congestion. APPENDIX: The air-filled appendix is of normal caliber (coronal series, images 63 through 73) VASCULATURE: Unremarkable. LYMPH NODES: No pathologically enlarged or morphologically suspicious lymph nodes within the retroperitoneum or at the root of the mesentery. PELVIC STRUCTURES: The bladder is distended, and otherwise unremarkable. The prostate gland is not enlarged, but contains multiple bulky calcifications.. BODY WALL AND MUSCULOSKELETAL: Small fat-containing umbilical hernia. No significant degenerative disease within the lower thoracic or lumbosacral spine. IMPRESSION: No pulmonary embolus. No aortic dissection. Guillermina infiltration of the mesentery, a nonspecific finding suggesting venous congestion. Reviewed, dictated and finalized at location A. TICE ARCHITECT IMPRESSION: No pulmonary embolus. No aortic dissection. Guillermina infiltration of the mesentery, a nonspecific finding suggesting venous co ngestion.
--- OUTSIDE RECORDS SUMMARY | 2024-04-16 15:38 | XMS_ITS | Encounter Summary ---
Author Organization [facility] Address [address] [place] [address] Care Team Providers Care Credentialing Coordinator Name Role Phone Oscar Cesar MD Primary Care Provider [phone] Encounter Details Date Type Department Care Team (Late st Contact Info) Description 04/09/2020 Prep for Procedure [facility] [address] [place] [address] Elda Marx MD [address] [facility] [address] [place] [address] Social History Tobacco Use Types Packs/Day Years [...] COVID-19? No / Unsure 03/22/2020 9:10 AM POLICE ACADEMY INSTRUCTOR documented as of this encounter Functional Status [...] Problems Recent Progress Patient-Stated? Author HOME TO [facility] No Joan Herrera RN documented as of this encounter Results * PRE-SURGICAL/PRE-PROCEDURE CORONAVIRUS (COVID 19) (04/16/2020 8:58 AM POLICE ACADEMY INSTRUCTOR) CORONAVIRUS SARS COV 2 PCR (RESP) NOT DETECTED NOT DETECTED 04/17/2020 3:31 PM POLICE ACADEMY INSTRUCTOR [facility] Comment: A Not Detected (negative) test result [...] providers and patients using the following websites: https://www.Ziplocal.Plexisoft/home/Covid-19/HCP/NAAT/fact-sheet2 https://www.Ziplocal.Plexisoft/home/Covid-19/Patients/NAAT/ fact-sheet2 This test has been authorized by the FDA under an Emergency Use Authorization (EUA) for use by authorized laboratories. Due to the current public health emergency, [facility] is receiving a high volume of samples [...] about COVID-19 can be found at the [facility] website: www.Markerly/Covid19. Test performed at [facility] [address] [place] [address] Director: LIZETH GOLDBERG DO,MPH FIRST TEST NO 04/16/2020 8:49 AM [facility] EMPLOYED IN HEALTHCARE NO 04/16/2020 8:49 AM [facility] SYMPTOMATIC DEFINED BY CDC NO 04/16/2020 8:49 AM [facility] DATE OF SYMPTOM ONSET UNKNOWN 04/16/2020 11:09 AM [facility] HOSPITALIZATION STATUS NO 04/16/2020 8:49 AM [facility] PATIENT IN ICU NO 04/16/2020 8:49 AM [facility] RESIDENT OF [facility] NO 04/16/2020 8:49 AM [facility] UNKNOWN 04/16/2020 11:09 AM [facility] PATIENT'S RACE WHITE OR 04/16/2020 8:49 AM [facility] ETHNICITY NONHISPANIC 04/16/2020 8:49 AM [facility] SOURCE (QST) NASOPHARYNGEAL SWAB 04/16/2020 8:49 AM POLICE ACADEMY INSTRUCTOR [facility] NASOPHARYNGEAL SWAB / Unknown 04/16/2020 8:58 AM POLICE ACADEMY INSTRUCTOR us Elda Marx MD MICROBIOLOGY - GENERAL ORDER ASIM Final Result [facility] [address] [place] [address], [facility] [address] [place] [address], documented in this encounter Visit Diagnoses Diagnosis Preop testing- Primary Preoperative examination, unspecified documented in this encounter Additional Health Concerns Infection Onset Date Last Indicated Resolved Time COVID-19 Rule Out 04/16/2020 04/16/2020 04/17/2020 3:31 PM POLICE ACADEMY INSTRUCTOR documented as of this encounter Care Teams Credentialing Coordinator Relationship Specialty Start Date End Date Oscar Cesar MD [address] [address] PCP - General INTERNAL MEDICINE 12/01/19 documented as of this encounter
--- OUTSIDE RECORDS SUMMARY | 2024-04-16 15:38 | XMS_ITS | Referral Summary ---
Author Organization [facility] Address [address] [place] [address] Care Team Providers Care Track Rider Name Role Phone Unavailable Primary Care Provider Unavailabl e Source Comments [facility] [employer],non-owned Affiliates and Associated Physician Practices is amultiple site organization consisting of ambulatory clinics and hospital sitesin [place], [place], [place] and [place]. This disclosure is being madepursuant to the Care Everywhere program and may not contain all information available regarding this patient. Last updated 17.[facility] Medications * Be aware that medications may not be up to date on this document. Alwaysverify current medications with the patient. Medication Sig Dispensed Refills Start Date End Date Status sodium sulfate-mag sulfate-KCl (Sutab) 4748-678-220 MG tabletIndications:En counter for screening colonoscopy Take [...]
--- OUTSIDE RECORDS SUMMARY | 2024-04-16 15:38 | XMS_ITS | Clinical Summary ---
Author Organization [facility] Address [address] [place] [address] Care Team Providers Care Wardrobe Attendant Name Role Phone Oscar Cesar MD Primary Care Provider [phone] Allergies Active Allergy Reactions Criticality Noted Date [...] (04/05/2020): Added automatically from request for surgery [id number] Perirectal abscess 12/11/2019 Family History Medical History [...] Comments Blood Pressure 134/88 04/26/2020 3:29 PM LABORATORY SPECIALIST Pulse 52 04/26/2020 3:29 PM LABORATORY SPECIALIST Temperature 36.2 C (97.2 F) 04/26/2020 3:29 PM LABORATORY SPECIALIST Respiratory Rate 20 04/26/2020 3:29 PM LABORATORY SPECIALIST Oxygen Saturation 99% 04/26/2020 3:29 PM LABORATORY SPECIALIST Inhaled Oxygen Concentration - - Weight 88 kg (194 lb) 04/26/2020 3:29 PM LABORATORY SPECIALIST Height 177.8 cm (5' 10 ) 04/26/2020 3:29 PM LABORATORY SPECIALIST Body Mass Index 27.84 04/26/2020 3:29 PM LABORATORY SPECIALIST Plan of Treatment Health Maintenance Due Date [...] Recent Progress Patient-Stated? Author HOME TO [facility]DEP[facility] No Joan Herrera RN Procedures Procedure Name Priority Date/Time Associated Diagnosis Comments COLONOSCOPY Routine 04/19/2020 9:53 AM LABORATORY SPECIALIST from Last 3 Months or Most Recently Relevant to Health [place] [address] [facility] Advance Directives * Full Code (Latest Code Status on File) Date Activated Date Inactivated Comments 12/01/2019 10:22 PM 12/04/2019 8:46 PM Care Teams Wardrobe Attendant Relationship Specialty Start Date End Date Oscar Cesar MD [address] [place] [address] PCP - General INTERNAL MEDICINE 12/01/19
--- OUTSIDE RECORDS SUMMARY | 2024-04-16 15:38 | XMS_ITS | Clinical Summary ---
Author Organization [facility] Address [address] [place] [address] Care Team Providers Care Sales Service Supervisor Name Role Phone Unavailable Primary Care Provider Unavailabl e Source Comments [facility] [employer],non-owned Affiliates and Associated Physician Practices is amultiple site organization consisting of ambulatory clinics and hospital sitesin [place], [place], [place] and [place]. This disclosure is being madepursuant to the Care Everywhere program and may not contain all information available regarding this patient. Last updated 17.[facility] [employer] Medications * Be aware that medications may not be up to date on this document. Alwaysverify current medications with the patient. Medication Sig Dispensed Refills Start Date End Date Status sodium sulfate-mag sulfate-KCl (Sutab) 8544-171-731 MG tabletIndications:En counter for screening colonoscopy Take [...]
--- OUTSIDE RECORDS SUMMARY | 2024-04-16 15:38 | XMS_ITS | Patient Health Summary ---
Author Organization [facility] Address [address] [place] [address] Care Team Providers Care Programming Instructor Name Role Phone Unavailable Primary Care Provider Unavailabl e Note from [facility],non-owned Affiliates and Associated Physician Practices is amultiple site organization consisting of ambulatory clinics and hospital sitesin [place], [place], [place] and [place]. This disclosure is being madepursuant to the Care Everywhere program and may not contain all information available regarding this patient. Last updated 17.[facility] Medications * Be aware that medications may not be up to date on this document. Alwaysverify current medications with the patient. * sodium sulfate-mag sulfate-KCl (Sutab) 1394-328-957 MG tablet(Started 09/15/2022) Take 12 tablets for [...]
--- NOTE | 2024-04-16 15:46 | ECG_ITS ---
Test Date: 2024-04-16 15:51:07 Measurements Intervals [place] Rate: 69 P: 132 MA: 140 QRS: 40 QRSD: 105 T: 67 QT: 366 QTc: 393 Interpretive Statements ECTOPIC ATRIAL RHYTHM POSSIBLE LEFT ATRIAL ENLARGEMENT CANNOT R/O SEPTAL INFARCT, AGE INDETERMINATE BORDERLINE ST-T WAVE ABNORMALITY- INFERIOR LEADS BASELINE ARTIFACT- I, AVR, AVL, AVF, V2-V6 ABNORMAL ECG No previous ECG available for comparison Electronically Signed On 04-16-2024 19:53:45 EMERGENCY ROOM CLERK by Flavio Bloom D.O.
--- OUTSIDE RECORDS SUMMARY | 2024-04-16 16:17 | XMS_ITS | Encounter Summary ---
Author Organization [facility] Address [facility] [place] [address] Care Team Providers Care Deputy Sheriff Building Guard Name Role Phone Oscar Cesar MD Primary Care Provider [phone] Encounter Details Date Type Department Care Team (Late st Contact Info) Description 04/09/2020 Prep for Procedure Health system [facility] [address] [place] [address] Elda Marx MD [address] [facility] [address] [place] [address] Social History Tobacco Use Types Packs/Day Years [...] COVID-19? No / Unsure 03/22/2020 9:10 AM INTEGRATION SOFTWARE DEVELOPER documented as of this encounter Functional Status [...] Problems Recent Progress Patient-Stated? Author HOME TO [facility] No Joan Herrera RN documented as of this encounter Results * PRE-SURGICAL/PRE-PROCEDURE CORONAVIRUS (COVID 19) (04/16/2020 8:58 AM INTEGRATION SOFTWARE DEVELOPER) CORONAVIRUS SARS COV 2 PCR (RESP) NOT DETECTED NOT DETECTED 04/17/2020 3:31 PM INTEGRATION SOFTWARE DEVELOPER [facility] Comment: A Not Detected (negative) [...] providers and patients using the following websites: https://[email or web address]/home/Covid-19/HCP/NAAT/fact-sheet2 [email or web address]://www.Statusly.Spontacts/home/Covid-19/Patients/NAAT/ fact-sheet2 This test has been authorized by the FDA under an Emergency Use Authorization (EUA) for use by authorized laboratories. Due to the current public health emergency, [facility] is receiving a high volume of samples [...] about COVID-19 can be found at the [employer] website: www.BigCalc/Covid19. Test performed at [facility] [address] [place] [address] Director: LIZETH GOLDBERG DO,MPH FIRST TEST NO 04/16/2020 8:49 AM [facility] EMPLOYED IN HEALTHCARE NO 04/16/2020 8:49 AM [facility] SYMPTOMATIC DEFINED BY CDC NO 04/16/2020 8:49 AM [facility] DATE OF SYMPTOM ONSET UNKNOWN 04/16/2020 11:09 AM [facility] HOSPITALIZATION STATUS NO 04/16/2020 8:49 AM [facility] PATIENT IN ICU NO 04/16/2020 8:49 AM [facility] RESIDENT OF [facility] NO 04/16/2020 8:49 AM [facility] UNKNOWN 04/16/2020 11:09 AM [facility] PATIENT'S RACE WHITE OR 04/16/2020 8:49 AM [facility] ETHNICITY NONHISPANIC 04/16/2020 8:49 AM [facility] SOURCE (QST) NASOPHARYNGEAL SWAB 04/16/2020 8:49 AM INTEGRATION SOFTWARE DEVELOPER [facility] NASOPHARYNGEAL SWAB / Unknown 04/16/2020 8:58 AM INTEGRATION SOFTWARE DEVELOPER us Elda Marx MD MICROBIOLOGY - GENERAL ORDER ASIM Final Result [facility] [address] [place] [address], [facility] [address] [place] [address], documented in this encounter Visit Diagnoses Diagnosis Preop testing- Primary Preoperative examination, unspecified documented in this encounter Additional Health Concerns Infection Onset Date Last Indicated Resolved Time COVID-19 Rule Out 04/16/2020 04/16/2020 04/17/2020 3:31 PM INTEGRATION SOFTWARE DEVELOPER documented as of this encounter Care Teams Deputy Sheriff Building Guard Relationship Specialty Start Date End Date Oscar Cesar MD [address] [address] PCP - General INTERNAL MEDICINE 12/01/19 documented as of this encounter
--- OUTSIDE RECORDS SUMMARY | 2024-04-16 16:17 | XMS_ITS | Clinical Summary ---
Author Organization [facility] Address [address] [place] [address] Care Team Providers Care Aircraft Log Clerk Name Role Phone Oscar Cesar MD Primary Care Provider [phone] Allergies Active Allergy Reactions Criticality Noted Date [...] (04/05/2020): Added automatically from request for surgery [id number] Perirectal abscess 12/11/2019 Family History Medical History [...] Comments Blood Pressure 134/88 04/26/2020 3:29 PM POLYMER SPECIALIST Pulse 52 04/26/2020 3:29 PM POLYMER SPECIALIST Temperature 36.2 C (97.2 F) 04/26/2020 3:29 PM POLYMER SPECIALIST Respiratory Rate 20 04/26/2020 3:29 PM POLYMER SPECIALIST Oxygen Saturation 99% 04/26/2020 3:29 PM POLYMER SPECIALIST Inhaled Oxygen Concentration - - Weight 88 kg (194 lb) 04/26/2020 3:29 PM POLYMER SPECIALIST Height 177.8 cm (5' 10 ) 04/26/2020 3:29 PM POLYMER SPECIALIST Body Mass Index 27.84 04/26/2020 3:29 PM POLYMER SPECIALIST Plan of Treatment Health Maintenance Due [...] Recent Progress Patient-Stated? Author HOME TO [facility] No Joan Herrera RN Procedures Procedure Name Priority Date/Time Associated Diagnosis Comments COLONOSCOPY Routine 04/19/2020 9:53 AM POLYMER SPECIALIST from Last 3 Months or Most Recently Relevant to Health [place] [id number] [facility] Advance Directives * Full Code (Latest Code Status on File) Date Activated Date Inactivated Comments 12/01/2019 10:22 PM 12/04/2019 8:46 PM Care Teams Aircraft Log Clerk Relationship Specialty Start Date End Date Oscar Cesar MD [address] [place] [address] PCP - General INTERNAL MEDICINE 12/01/19
--- OUTSIDE RECORDS SUMMARY | 2024-04-16 16:17 | XMS_ITS | Referral Summary ---
Author Organization [facility] Address [address] [place] [address] Care Team Providers Care Banquet Server Name Role Phone Unavailable Primary Care Provider Unavailabl e Source Comments [facility] [employer],non-owned Affiliates and Associated Physician Practices is amultiple site organization consisting of ambulatory clinics and hospital sitesin [place], [place], [place] and [place]. This disclosure is being madepursuant to the Care Everywhere program and may not contain all information available regarding this patient. Last updated 17.[facility] [employer] Medications * Be aware that medications may not be up to date on this document. Alwaysverify current medications with the patient. Medication Sig Dispensed Refills Start Date End Date Status sodium sulfate-mag sulfate-KCl (Sutab) 0571-280-668 MG tabletIndications:En counter for screening colonoscopy Take [...]
--- OUTSIDE RECORDS SUMMARY | 2024-04-16 16:17 | XMS_ITS | Clinical Summary ---
Author Organization [facility] Address [address] [facility] [place] [address] Care Team Providers Care Vet Tech Name Role Phone Unavailable Primary Care Provider Unavailabl e Source Comments [facility] [employer],non-owned Affiliates and Associated Physician Practices is amultiple site organization consisting of ambulatory clinics and hospital sitesin [place], [place], [place] and [place]. This disclosure is being madepursuant to the Care Everywhere program and may not contain all information available regarding this patient. Last updated 17.[facility] [employer] Medications * Be aware that medications may not be up to date on this document. Alwaysverify current medications with the patient. Medication Sig Dispensed Refills Start Date End Date Status sodium sulfate-mag sulfate-KCl (Sutab) 1576-511-607 MG tabletIndications:En counter for screening colonoscopy Take [...]
--- OUTSIDE RECORDS SUMMARY | 2024-04-16 16:17 | XMS_ITS | Patient Health Summary ---
Author Organization [facility] [employer] Address [address] [facility] [place] [address] Care Team Providers Care Forging Operator Name Role Phone Unavailable Primary Care Provider Unavailabl e Note from [facility],non-owned Affiliates and Associated Physician Practices is amultiple site organization consisting of ambulatory clinics and hospital sitesin [place], [place], [place] and [place]. This disclosure is being madepursuant to the Care Everywhere program and may not contain all information available regarding this patient. Last updated 17.[facility] [employer] Medications * Be aware that medications may not be up to date on this document. Alwaysverify current medications with the patient. * sodium sulfate-mag sulfate-KCl (Sutab) 7696-416-540 MG tablet(Started 09/15/2022) Take 12 tablets for [...]
[2024-04-16 16:18] LABS: Basophils Percent Auto 0.2 % (0.2-1.2); Eosinophils Percent Auto 0.2 % (0-4.4); Hematocrit 44.8 % (42.0-52.0); Hemoglobin 15.2 g/dL (14.0-18.0); Immature Granulocyte Absolute 0.02 K/mm3 (0.00-0.031); Immature Granulocyte Percent A 0.3 % (0-0.5); Lymphocytes Absolute Auto 1.11 K/mm3 (0.9-3.2); Lymphocytes Percent Auto 17.2 % (18.3-44.2); Mean Corpuscular HGB Conc 33.9 g/dl (32-36); Mean Corpuscular Hemoglobin 30.1 pg (26-34); Mean Corpuscular Volume 88.7 fl (80-100); Monocytes Absolute Auto 0.5 K/mm3 (0.1-0.6); Monocytes Percent Auto 7.7 % (2.6-8.5); Neutrophils Absolute Auto 4.8 K/mm3 (1.3-6.7); Neutrophils Percent Auto 74.4 % (45.5-73.1); Platelet Count Result 205 k/mm3 (150-375); Red Blood Count 5.05 M/mm3 (4.6-6.20); Red Cell Distribution Width 12.5 % (11.5-14.5); White Blood Count 6.5 K/mm3 (4.5-10.0)
[2024-04-16 16:30] LABS: Alanine Aminotransferase 38 U/L (6-50); Albumin Level 4.7 g/dL (3.5-5.1); Alkaline Phosphatase 53 U/L (38-126); Anion Gap 13 mmol/L (4-12); Aspartate Amino Transferase 31 U/L (17-59); Bilirubin,Total 0.5 mg/dL (0.2-1.3); Blood Urea Nitrogen 10 mg/dL (9-20); Calcium 9.7 mg/dL (8.4-10.2); Carbon Dioxide 28 mmol/L (22-30); Chloride 99 mmol/L (98-107); Estimated CRCL calculation 102 ml/min; Estimated Glomerular Filt Rate > 60; Glucose 109 mg/dL (65-110); Potassium 3.8 mmol/L (3.4-5.0); Sodium 140 mmol/L (137-145)
[2024-04-16 16:31] LABS: Estimated CRCL calculation 81 ml/min; Estimated Glomerular Filt Rate > 60
[2024-04-16 16:55] LABS: Influenza A QL RT-PCR Negative (Negative); Influenza B QL RT-PCR Positive (Negative); RSV RNA, RT-PCR Negative (Negative); SARS-CoV-2 RNA PCR Negative (Negative)
--- NOTE | 2024-04-16 17:36 | ED_ITS ---
HPI - General Adult General Chief complaint: Shortness of Breath/Dyspnea Stated complaint: sob Time Seen by Provider: 04/16/24 15:53 History of Present Illness HPI narrative: 58-year-old male present to the emergency department for evaluation for cough congestion. Patient was evaluated urgent care and was referred to the emergency department for further evaluation. Urgent Care was concerned for the possibility of pulmonary embolism. Patient's primary complaint is cough congestion that started on Wednesday. Related Data Allergies Allergy/AdvReac Type Severity Reaction Status Date / Time No Known Allergies Allergy Verified 04/16/24 15:36 Review of Systems 2 Review of Systems: All systems reviewed & are unremarkable except as noted in HPI and below PMFSH Past Medical History Medical History Bradycardia Fracture of lumbar spine Gastro-esophageal reflux disease without esophagitis Hx of colonic polyps Hyperglycemia Left lower quadrant pain Uncomplicated asthma Surgical History Surgical History History of colon resection Perianal abscess excised Family History Family History Father Family history of liver disease Patient's father is Mother Family history of diabetes mellitus in first degree relative Heart disease Social History Social History Smoking status: Never smoker Alcohol intake: never Alcohol use details: socially Substance use: never Substance use type: does not use Lack of Transportation: No Lack of Food: Never True Current Housing: I Have Housing Concerned About Future Housing: No Difficulty Paying Gas/Electric Bills: No Difficulty Paying for Meds: No Currently Unemployed: No Education: Bachelor's Degree Difficulty w/ Childcare or Family Care: No Living arrangements: with family Occupation/Education: occupation Gender identity (if verbalized by the patient): Male Spiritual care concerns: No Exam 2 Narrative: APPEARANCE: Well appearing, no pain, no distress, well-nourished. HEAD: normocephalic, atraumatic. EYES: PERRLA/EOMI, conjunctivae clear. NOSE: Normal no drainage EARS:TMS clear with good light reflex. THROAT: Pharynx clear, no exudate. NECK: Supple. No adenopathy, no masses. RESPIRATORY: Lungs are clear to auscultation CARDIOVASCULAR: Regular rate and rhythm without murmurs rubs or gallops. ABDOMINAL: Soft, nontender, nondistended, normal bowel sounds MUSCULOSKELETAL: Moves all extremities. Strength/ROM intact, No edema, No calf tenderness. NEURO: Alert. Cranial nerves II through XII intact. Good gait. Good coordination SKIN: Warm, dry. Normal Color Course Vital Signs Vital signs: Vital Signs Temperature 99.3 F 04/16/24 15:37 Pulse Rate 80 04/16/24 15:37 Respiratory Rate 19 04/16/24 15:37 Blood Pressure 160/107 H 04/16/24 15:37 Pulse Oximetry 100 04/16/24 15:37 Oxygen Delivery Room Air 04/16/24 15:37 Temperature 99.3 F 04/16/24 15:37 Pulse Rate 72 04/16/24 18:31 Respiratory Rate 12 04/16/24 18:31 Blood Pressure 157/88 H 04/16/24 18:30 Pulse Oximetry 94 04/16/24 18:31 Oxygen Delivery Room Air 04/16/24 16:10 Medical Decision Making MDM Narrative Medical decision making narrative: 58-year-old male presents to the emergency department for evaluation for cough and congestion this been ongoing since Wednesday. Patient was afebrile with no leukocytosis and hemoglobin of 15.2. Patient has no significant abnormalities on his CMP patient did test positive for influenza B. CTA was negative for pulmonary embolism and showed clear lungs. Patient was updated on results of the workup. Patient was provided albuterol and Tessalon Perles for symptom control. Patient was encouraged of close follow-up with primary care physician. Differential Diagnosis Differential Diagnosis: COVID, RSV, influenza, pulmonary embolism, pneumonia Vital Signs Vital Signs: Vital Signs Temperature 99.3 F 04/16/24 15:37 Pulse Rate 80 04/16/24 15:37 Respiratory Rate 19 04/16/24 15:37 Blood Pressure 160/107 H 04/16/24 15:37 Pulse Oximetry 100 04/16/24 15:37 Oxygen Delivery Room Air 04/16/24 15:37 Temperature 99.3 F 04/16/24 15:37 Pulse Rate 72 04/16/24 18:31 Respiratory Rate 12 04/16/24 18:31 Blood Pressure 157/88 H 04/16/24 18:30 Pulse Oximetry 94 04/16/24 18:31 Oxygen Delivery Room Air 04/16/24 16:10 Lab Data Lab results reviewed: Yes I reviewed the patient's lab results. 04/16/24 16:10 04/16/24 16:29 Labs: Lab Results 04/16/24 04/16/24 Range/Units 16:10 16:29 WBC 6.5 (4.5-10.0) K/mm3 RBC 5.05 (4.6-6.20) M/mm3 Hgb 15.2 (14.0-18.0) g/dL Hct 44.8 (42.0-52.0) % MCV 88.7 (80-100) fl MCH 30.1 (26-34) pg MCHC 33.9 (32-36) g/dl RDW 12.5 (11.5-14.5) % Plt Count 205 (150-375) k/mm3 MPV 10.0 (7.4-10.4) fl Immature Gran % (Auto) 0.3 (0-0.5) % Neut % (Auto) 74.4 H (45.5-73.1) % Lymph % (Auto) 17.2 L (18.3-44.2) % Chester % (Auto) 7.7 (2.6-8.5) % Eos % (Auto) 0.2 (0-4.4) % Baso % (Auto) 0.2 (0.2-1.2) % Lymph # (Auto) 1.11 (0.9-3.2) K/mm3 Chester # (Auto) 0.5 (0.1-0.6) K/mm3 Eos # (Auto) 0.0 (0-0.3) K/mm3 Baso # (Auto) 0.0 (0.0-0.1) K/mm3 Abs Immat Gran (auto) 0.02 (0.00-0.031) K/mm3 Absolute Neuts (auto) 4.8 (1.3-6.7) K/mm3 Absolute Nucleated RBC 0.000 (0.0-0.012) K/mm3 Nucleated RBC % 0.0 (0.0-0.2) % Sodium 140 (137-145) mmol/L Potassium 3.8 (3.4-5.0) mmol/L Chloride 99 (98-107) mmol/L Carbon Dioxide 28 (22-30) mmol/L Anion Gap 13 H (4-12) mmol/L BUN 10 (9-20) mg/dL Creatinine 0.70 0.90 (0.7-1.3) mg/dL Estim Creat Clear Calc 102 81 ml/min Estimated GFR > 60 > 60 (59 - ) Glucose 109 (65-110) mg/dL Calcium 9.7 (8.4-10.2) mg/dL Total Bilirubin 0.5 (0.2-1.3) mg/dL AST 31 (17-59) U/L ALT 38 (6-50) U/L Alkaline Phosphatase 53 (38-126) U/L Total Protein 8.0 (6.3-8.2) g/dL Albumin 4.7 (3.5-5.1) g/dL Influenza A (RT-PCR) Negative (Negative) Influenza B (RT-PCR) Positive A (Negative) RSV (RT-PCR) Negative (Negative) SARS-CoV-2 RNA (RT-PCR) Negative (Negative) Imaging Data Radiologist's impression: Impressions Chest/Abdomen/Pelvis CTA 04/16/24 17:09 IMPRESSION: No pulmonary embolus. No aortic dissection. Guillermina infiltration of the mesentery, a nonspecific finding suggesting venous congestion. Discharge Plan Discharge Clinical Impression: Influenza B Patient Disposition: Home, Self-Care Condition: Stable Instructions: Antibiotic Form, Influenza (ED) Additional Instructions: Tylenol and ibuprofen for fever and for body aches. Albuterol inhaler for shortness of breath. Tessalon Perles for cough. Have close follow-up with your primary care physician. If you have any worsening symptoms please call or return to the emergency department. Patient Language: Egyptian Prescriptions: New benzonatate 100 mg capsule 100 mg PO TID PRN (Reason: cough) Qty: 14 0RF albuterol sulfate 90 mcg/actuation HFA aerosol inhaler 1 puff inhalation QID Qty: 6.7 0RF No Action (DME) Nebulizer & Neb Kit See Rx Instructions .Route .MEDSUPPLY Qty: 1 0RF Rx Instructions: NEW Nebulizer Portable (E0570) (A7005) Neb Kit Nebulizer Supplies DX: J45.909 Asthma Length of Need: Lifetime Bria Ritzheimer, [place] DME: Dalila [phone] metformin 500 mg tablet 500 mg PO BIDWMEAL Qty: 180 1RF albuterol sulfate 2.5 mg /3 mL (0.083 %) solution for nebulization 2.5 mg inhalation Q4-6H PRN (Reason: shortness of breath or wheezing) Qty: 180 3RF trazodone 50 mg tablet See Rx Instructions .ROUTE .COMPLEX Qty: 270 0RF Dose Instruction: TAKE 3 TABLETS BY MOUTH AT BEDTIME Rx Instructions: TAKE 3 TABLETS BY MOUTH AT BEDTIME albuterol sulfate 90 mcg/actuation HFA aerosol inhaler 1 puff inhalation QID PRN (Reason: shortness of breath or wheezing) Qty: 25.5 4RF Follow-up/Referrals: UNKNOWN,DOCTOR [Primary Care Provider] -
== END 2024-04-16 18:44 | disposition home or self-care (01) ==
PROVIDERS: Emergency Provider Emergency Medicine
DX: J10.1 Influenza due to other identified influenza virus with other respiratory manifestations (principal); Z20.822 Contact with and (suspected) exposure to COVID-19; J45.909 Unspecified asthma, uncomplicated; K21.9 Gastro-esophageal reflux disease without esophagitis; Z86.0100 Personal history of colon polyps, unspecified; Z90.49 Acquired absence of other specified parts of digestive tract; R94.31 Abnormal electrocardiogram [ECG] [EKG]
CPT/HCPCS: 36415; 71275; 74177; 80053; 85025; 87637; 93005; 99284; Q9967

== ENCOUNTER 2024-10-25 10:10 | Outpatient (CLI) | payer BC, SELFPAY ==
--- OUTSIDE RECORDS SUMMARY | 2024-10-25 10:33 | XMS_ITS | Clinical Summary ---
Author Organization [facility] Address [address] [place] [address] Care Team Providers Care Entry Level Civil Engineer Name Role Phone Unavailable Primary Care Provider Unavailabl e Source Comments [facility] [employer],non-owned Affiliates and Associated Physician Practices is amultiple site organization consisting of ambulatory clinics and hospital sitesin [place], [place], [place] and [place]. This disclosure is being madepursuant to the Care Everywhere program and may not contain all information available regarding this patient. Last updated 17.[facility] [employer] Medications * Be aware that medications may not be up to date on this document. Alwaysverify current medications with the patient. sodium sulfate-mag sulfate-KCl (Sutab) 2569-722-481 MG tabletIndicatio ns:Encounter for screening colonoscopy Take 12 tablets for first dose and 12 tablets for second according to instructions in package. 1 kit 3 Active Social History Tobacco Use Types Packs/Day Years Used Date Smoking Tobacco: Never Assessed Sex and Gender Information Value Date Recorded Sex Assigned at Not on file Legal Sex Male 8:10 PM CDT Gender Identity Not on file [...] VACCINE (1 of 2) 07/14/2015 COVID-19 VACCINE (1 - 2023-2 5 season) 2023 DEPRESSION SCREENING 03/08/2024 INFLUENZA VACCINE (#1) 2024 COLON MONITORING 04/19/2030 04/19/2020 COLONOSCOPY - COLON CA SCREENING 04/19/2030 04/19/19 21 Colorectal Cancer Screening 04/19/2030 HIB VACCINE Aged Out No longer eligi ble based on patient's age to complete this topic HPV VACCINE Aged Out No longer eligi ble based on patient's age to complete this topic MENINGOCOCCAL (Group B) VACC INE SHARED DECISION-MAKING Aged Out No longer eligibl e based on patient's age to complete this topic MENINGOCOCCAL GROUPS A/C/Y/W VACCINE Aged Out No longer eligible b ased on patient's age to complete this topic Procedures Procedure Name Priority Date/Time Associated Diagnosis Comments COLONOSCOPY Routine 04/19/2020 from Last 3 Months or Most Recently Relevant to Health Maintenance Results * COLONOSCOPY (04/19/2020) us Historical Provider SCANNING ONLY Final Res ult from Last 3 Months or Most Recently Relevant to Health Maintenance [facility] [place] [id number] [facility] [place] [id number]
--- NOTE | 2024-11-02 15:38 | WPDHOLTEREM ---
Holter/Event Monitor Holter/Event Monitor Date of procedure: 10/25/24 Holter/Event Procedure: 3-7 Day Holter Monitor Indications: Palpitations Conclusion: 1. 3 days holter monitor on 10/25/24. 2. Predominant rhythm is sinus rhythm. HR range 39-173 bpm; average HR 58 bpm. HR at 39 bpm was on 10/26/24 at 6:29 am. HR at 173 bpm was on 10/27/24 at 7:30 am. 3. There are intermittent premature supraventricular complexes at 5.2%, rare supraventricular couplets, and rare supraventricular triplets. There are 2 episodes of supraventricular tachycardia with fastest at 141 bpm and longest lasting 7 beats. 4. There are rare premature ventricular complexes and rare ventricular triplets. No ventricular tachycardia. 5. No significant pauses greater than 3 seconds. 6. Patient reports 1 episode of symptoms of lightheadedness/coughing hard which demonstrates sinus tachycardia at 149 bpm.
== END 2024-10-25 10:11 | disposition home or self-care (01) ==
LOC: ANHCARD 10:11
PROVIDERS: PCP Internal Medicine; Visit Provider Internal Medicine
DX: I49.1 Atrial premature depolarization (principal); I47.10 Supraventricular tachycardia, unspecified; I49.3 Ventricular premature depolarization; R05.9 Cough, unspecified
CPT/HCPCS: 93242

== ENCOUNTER 2025-01-02 09:58 | Outpatient (CLI) | payer BC, SELFPAY ==
--- NOTE | ~2025-01-02 | CT_ITS ---
Exam: CT chest without contrast Clinical History: [Cough, unspecified ] Comparison: [ CTA chest 04/16/2024 Technique: Multiple axial CT images of the chest without with IV contrast. Sagittal and coronal reformatted images were obtained. FINDINGS: Lungs and pleura: [ Tracheobronchial tree is patent.] No pneumothorax. No pleural effusion. No focal pulmonary consolidation. No pulmonary nodules. Mediastinum and pulmonary catarina: [ No mass or adenopathy.] Axillary/intramammary and supraclavicular: [ No mass or adenopathy.] Heart and great vessels: [ Normal heart size.[ [ No pericardial effusion.] [ No aneurysm.] Coronary artery calcifications. Chest Wall: [ Unremarkable.] Upper Abdomen: [ No significant findings.] Osseous structures: [ No acute fracture or destructive lesion.] [ Multilevel degenerative change in the visualized spine.] Additional findings: [ None of significance.] IMPRESSION: 1. No CT evidence for an acute process in the chest. Reviewed, dictated and finalized at location Q.
--- OUTSIDE RECORDS SUMMARY | 2025-01-02 11:15 | XMS_ITS | Patient Health Record ---
Author Organization [facility] Address [address] [place], [place] [id number] Care Team Providers Care Police Inspector Name Role Phone EUFEMIA SOLANO Unavailable [phone] Oscar Cesar Unavailable Unavailable Reason For Referral No Information Medications Medication SIG (Take, Route, Frequency, Duration) Notes Start Date End Date Status nabumetone 500 MG Oral Tablet [Relafen] ORAL nabumetone 500 MG Oral Tablet [Relafen]Original Medicationnabumetone 500 MG Oral Tablet [Relafen] *Reorder from [employer] for eRx and Interaction Alerts* 04/24/2014 Active Social History Social History Additional Details Category Social Info Options Details Migrated Social History Migrated Social History History of tobacco use : , Alcohol intake : , Smoking Status : Never smoked Plan Of Treatment No Information Insurance Providers Payer Name Payer Address Payer Phone Subscriber Number Group Number Insured Name Patient Relationship to Insured Coverage Start Date Coverage End Date [facility] ([facility]) ATTN CLAIMS [address] [place] [address] [id number] GIRMA ALICEA Spouse - patient is the spouse of the insured
--- OUTSIDE RECORDS SUMMARY | 2025-01-02 11:15 | XMS_ITS | Clinical Summary ---
Author Organization [facility] Address [address] [place] [address] Care Team Providers Care Strategic Accounts Manager Name Role Phone Oscar Cesar MD Primary Care Provider [phone] Allergies Active Allergy Reactions Criticality Noted Date [...] (04/05/2020): Added automatically from request for surgery [id number] Perirectal abscess 12/11/2019 Family History Medical History [...] Comments Blood Pressure 134/88 04/26/2020 3:29 PM CREATIVE PRODUCER Pulse 52 04/26/2020 3:29 PM CREATIVE PRODUCER Temperature 36.2 C (97.2 F) 04/26/2020 3:29 PM CREATIVE PRODUCER Respiratory Rate 20 04/26/2020 3:29 PM CREATIVE PRODUCER Oxygen Saturation 99% 04/26/2020 3:29 PM CREATIVE PRODUCER Inhaled Oxygen Concentration - - Weight 88 kg (194 lb) 04/26/2020 3:29 PM CREATIVE PRODUCER Height 177.8 cm (5' 10) 04/26/2020 3:29 PM CREATIVE PRODUCER Body Mass Index 27.84 04/26/2020 3:29 PM CREATIVE PRODUCER Plan of Treatment Health Maintenance Due Date Last Done Comments Annual Physical 1968 Hepatitis C 07/14/1983 DTaP, Tdap and Td Vaccines ( 1 - Tdap) 1984 Pneumococcal Vaccine: 50+ Years (1 of 1 - PCV) 07/14/2015 Zoster Vaccines (1 of 2) 07/14/2015 COVID-19 Vaccine (2024-2 6 season) 2024 Influenza Adult (#1) 2024 Colorectal Cancer Screening Colonoscopy (10 Years) 04/19/2030 04/19/2020, 04/19/2020 Hepatitis A Vaccines Aged Out No long er eligible based on patient's age to complete this topic Meningococcal B Vaccine Aged Out No l [...] Recent Progress Patient-Stated? Author HOME TO [facility] General No Joan Herrera examiner rating clerk Procedure Name Priority Date/Time Associated Diagnosis Comments COLONOSCOPY Routine 04/19/2020 9:53 AM CREATIVE PRODUCER from Last 3 Months or Most Recently Relevant to Health Maintenance Insurance [facility] Advance Directives * Full Code (Latest Code Status on File) Date Activated Date Inactivated Comments 12/01/2019 10:22 PM 12/04/2019 8:46 PM Care Teams Strategic Accounts Manager Relationship Specialty Start Date End Date Oscar Cesar MD [address] [place] [address] PCP - General INTERNAL MEDICINE 12/01/19
--- OUTSIDE RECORDS SUMMARY | 2025-01-02 11:16 | XMS_ITS | Clinical Summary ---
Author Organization [facility] Address [address] [facility] [place] [address] Care Team Providers Care Shoe Repair Supervisor Name Role Phone Unavailable Primary Care Provider Unavailabl e Source Comments [facility] [employer],non-owned Affiliates and Associated Physician Practices is amultiple site organization consisting of ambulatory clinics and hospital sitesin [place], [place], [place] and [place]. This disclosure is being madepursuant to the Care Everywhere program and may not contain all information available regarding this patient. Last updated 17.[facility] [employer] Medications * Be aware that medications may not be up to date on this document. Alwaysverify current medications with the patient. sodium sulfate-mag sulfate-KCl (Sutab) 8486-461-234 MG tabletIndicatio ns:Encounter for screening colonoscopy Take [...] 07/14/2015 ZOSTER VACCINE (1 of 2) 07/14/2015 DEPRESSION SCREENING 03/08/2024 COVID-19 VACCINE (1 - 2023-2 5 season) 2024 INFLUENZA VACCINE (#1) 2024 COLON MONITORING 04/19/2030 [...] Most Recently Relevant to Health Maintenance [place] [id number] [facility] [place] [address] [id number]
--- OUTSIDE RECORDS SUMMARY | 2025-01-02 11:16 | XMS_ITS | Encounter Summary ---
Author Organization [facility] Address [address] [place] [address] Care Team Providers Care System Admin Name Role Phone Oscar Cesar MD Primary Care Provider [phone] Encounter Details Date Type Department Care Team (Late st Contact Info) Description 04/09/2020 Prep for Procedure [facility] Day Services [address] [place] [address] Elda Marx MD [facility] [address] [address] Social History Tobacco Use Types Packs/Day Years [...] COVID-19? No / Unsure 03/22/2020 9:10 AM LUNCH COUNTER MANAGER documented as of this encounter Functional Status [...] Problems Recent Progress Patient-Stated? Author HOME TO [facility] No Joan Herrera RN documented as of this encounter Results * PRE-SURGICAL/PRE-PROCEDURE CORONAVIRUS (COVID 19) (04/16/2020 8:58 AM LUNCH COUNTER MANAGER) Pathologist [facility] CORONAVIRUS SARS COV 2 PCR (RESP) NOT DETECTED NOT DETECTED 04/17/2020 3:31 PM LUNCH COUNTER MANAGER [employer] [facility] Comment: A Not [...] providers and patients using the following websites: https://www.[employer].com/home/Covid-19/HCP/NAAT/fact-sheet2 https://www.[employer]acoPhoton[employer]/home/Covid-19/Patients/NAAT/ fact-sheet2 This test has been authorized by the FDA under an Emergency Use Authorization (EUA) for use by authorized laboratories. Due to the current public health emergency, [employer] is receiving a high volume of samples [...] about COVID-19 can be found at the [employer] website: www.[employer].Pharm[employer]Photon[employer]/Covid19. Test performed at [facility][1] [address] [place] [address] Director: LIZETH GOLDBERG DO,MPH FIRST TEST NO 04/16/2020 8:49 AM [facility] EMPLOYED IN HEALTHCARE NO 04/16/2020 8:49 AM [facility] SYMPTOMATIC DEFINED BY CDC NO 04/16/2020 8:49 AM [facility] DATE OF SYMPTOM ONSET UNKNOWN 04/16/2020 11:09 AM [facility] HOSPITALIZATION STATUS NO 04/16/2020 8:49 AM [facility] PATIENT IN ICU NO 04/16/2020 8:49 AM [facility] RESIDENT OF [facility] NO 04/16/2020 8:49 AM [facility] UNKNOWN 04/16/2020 11:09 AM [facility] PATIENT'S RACE WHITE OR 04/16/2020 8:49 AM [facility] ETHNICITY NONHISPANIC 04/16/2020 8:49 AM [facility] SOURCE (QST) NASOPHARYNGEAL SWAB 04/16/2020 8:49 AM LUNCH COUNTER MANAGER [facility] NASOPHARYNGEAL SWAB / Unknown 04/16/2020 8:58 AM LUNCH COUNTER MANAGER us Elda Marx MD MICROBIOLOGY - GENERAL ORDER ASIM Final Result [facility] [address] [place] [address], [employer] [facility] [address] [place] [address], documented in this encounter Visit Diagnoses Diagnosis Preop testing- Primary Preoperative examination, unspecified documented in this encounter Additional Health Concerns Infection Onset Date Last Indicated Resolved Time COVID-19 Rule Out 04/16/2020 04/16/2020 04/17/2020 3:31 PM LUNCH COUNTER MANAGER documented as of this encounter Care Teams System Admin Relationship Specialty Start Date End Date Oscar Cesar MD [address] [place] [address] PCP - General INTERNAL MEDICINE 12/01/19 documented as of this encounter
== END 2025-01-02 09:59 | disposition home or self-care (01) ==
PROVIDERS: PCP Internal Medicine; Visit Provider Physician Assistant
DX: J45.909 Unspecified asthma, uncomplicated (principal); R13.10 Dysphagia, unspecified
CPT/HCPCS: 71250

== ENCOUNTER 2025-02-27 17:14 | Outpatient (CLI) | payer BC, SELFPAY ==
--- NOTE | ~2025-02-27 | XR_ITS ---
[[id number] ] INDICATION: Left rib pain TECHNIQUE: Frontal projection of the upper left ribs, frontal projection of the lower left ribs, oblique projection of all the left ribs, frontal inspiratory chest x-ray for interpretation. FINDINGS: There are no displaced rib fractures identified. There are no soft tissue abnormality seen. The lungs are clear. IMPRESSION: 1:No acute displaced rib fractures. Reviewed, dictated and finalized at location O. CULAR TECHNOLOGIST
--- OUTSIDE RECORDS SUMMARY | 2025-02-27 17:17 | XMS_ITS | Patient Health Record ---
Author Organization [facility] Address [address] [place], [place] [address] Care Team Providers Care Grant Specialist Name Role Phone EUFEMIA SOLANO Unavailable [phone] Oscar Cesar Unavailable Unavailable Reason For Referral No Information Medications Medication SIG (Take, Route, Frequency, Duration) Notes Start Date End Date Status nabumetone 500 MG Oral Tablet [Relafen] ORAL nabumetone 500 MG Oral Tablet [Relafen]Original Medicationnabumetone 500 MG Oral Tablet [Relafen] *Reorder from [employer] for eRx and Interaction Alerts* 04/24/2014 Active [...] Insured Coverage Start Date Coverage End Date [facility] ([facility]) ATTN CLAIMS [address] [place] [address] [id number] GIRMA ALICEA Spouse - patient is the spouse of the insured
--- OUTSIDE RECORDS SUMMARY | 2025-02-27 17:17 | XMS_ITS | Clinical Summary ---
Author Organization [facility] Address [address] [facility] [place] [address] Care Team Providers Care Pediatric Neurologist Name Role Phone Unavailable Primary Care Provider Unavailabl e Source Comments [facility] [employer],non-owned Affiliates and Associated Physician Practices is amultiple site organization consisting of ambulatory clinics and hospital sitesin [place], [place], [place] and [place]. This disclosure is being madepursuant to the Care Everywhere program and may not contain all information available regarding this patient. Last updated 17.[facility] [employer] Medications * Be aware that medications may not be up to date on this document. Alwaysverify current medications with the patient. sodium sulfate-mag sulfate-KCl (Sutab) 2402-640-255 MG tabletIndicatio ns:Encounter for screening colonoscopy Take [...] DEPRESSION SCREENING 03/08/2024 COVID-19 VACCINE (1 - 2024-2 6 season) 2024 INFLUENZA VACCINE (#1) 2024 COLON [...] Most Recently Relevant to Health Maintenance [facility] [place] [address] [facility] [place] [address]
--- OUTSIDE RECORDS SUMMARY | 2025-02-27 17:17 | XMS_ITS | Encounter Summary ---
Author Organization [facility] Address On license of [facility] [place] [address] Care Team Providers Care Plater Supervisor Name Role Phone Oscar Cesar MD Primary Care Provider [phone] Encounter Details Date Type Department Care Team (Late st Contact Info) Description 04/09/2020 Prep for Procedure [facility] One Day Services [address] [place] [address] Elda Marx MD [facility] [address] [address] Social History Tobacco Use Types Packs/Day Years [...] COVID-19? No / Unsure 03/22/2020 9:10 AM SLURRY TANK OPERATOR documented as of this encounter Functional Status [...] Problems Recent Progress Patient-Stated? Author HOME TO [facility] No Joan Herrera RN documented as of this encounter Results * PRE-SURGICAL/PRE-PROCEDURE CORONAVIRUS (COVID 19) (04/16/2020 8:58 AM SLURRY TANK OPERATOR) Pathologist [facility] CORONAVIRUS SARS COV 2 PCR (RESP) NOT DETECTED NOT DETECTED 04/17/2020 3:31 PM SLURRY TANK OPERATOR [employer] [facility] Comment: A Not Detected (negative) [...] providers and patients using the following websites: https://www.[employer].com/home/Covid-19/HCP/NAAT/fact-sheet2 https://www.[employer].[place] News Network/home/Covid-19/Patients/NAAT/ fact-sheet2 This test has been authorized by the FDA under an Emergency Use Authorization (EUA) for use by authorized laboratories. Due to the current public health emergency, [employer] is receiving a high volume of samples [...] about COVID-19 can be found at the [employer] website: www.[employer].[place] News Network/Covid19. Test performed at [facility] [address] [place] [address] Director: LIZETH GOLDBERG DO,MPH FIRST TEST NO 04/16/2020 8:49 AM [facility] EMPLOYED IN HEALTHCARE NO 04/16/2020 8:49 AM [facility] SYMPTOMATIC DEFINED BY CDC NO 04/16/2020 8:49 AM [facility] DATE OF SYMPTOM ONSET UNKNOWN 04/16/2020 11:09 AM [facility] HOSPITALIZATION STATUS NO 04/16/2020 8:49 AM [facility] PATIENT IN ICU NO 04/16/2020 8:49 AM [facility] RESIDENT OF [facility] NO 04/16/2020 8:49 AM [facility] UNKNOWN 04/16/2020 11:09 AM [facility] PATIENT'S RACE WHITE OR 04/16/2020 8:49 AM [facility] ETHNICITY NONHISPANIC 04/16/2020 8:49 AM [facility] SOURCE (QST) NASOPHARYNGEAL SWAB 04/16/2020 8:49 AM SLURRY TANK OPERATOR [facility] NASOPHARYNGEAL SWAB / Unknown 04/16/2020 8:58 AM SLURRY TANK OPERATOR us Elda Marx MD MICROBIOLOGY - GENERAL ORDER ASIM Final Result [facility] [address] [place] [address], [employer] [facility] [address] [place] [address], documented in this encounter Visit Diagnoses Diagnosis Preop testing- Primary Preoperative examination, unspecified documented in this encounter Additional Health Concerns Infection Onset Date Last Indicated Resolved Time COVID-19 Rule Out 04/16/2020 04/16/2020 04/17/2020 3:31 PM SLURRY TANK OPERATOR documented as of this encounter Care Teams Plater Supervisor Relationship Specialty Start Date End Date Oscar Cesar MD [address] [place] [address] PCP - General INTERNAL MEDICINE 12/01/19 documented as of this encounter
--- OUTSIDE RECORDS SUMMARY | 2025-02-27 17:17 | XMS_ITS | Clinical Summary ---
Author Organization [facility] Address [address] [place] [address] Care Team Providers Care Data Warehouse Administrator Name Role Phone Oscar Cesar MD Primary Care Provider [phone] Allergies Active Allergy Reactions Criticality Noted Date [...] (04/05/2020): Added automatically from request for surgery [id number] Perirectal abscess 12/11/2019 Family History Medical History [...] Comments Blood Pressure 134/88 04/26/2020 3:29 PM FINISHER HOT STRIP Pulse 52 04/26/2020 3:29 PM FINISHER HOT STRIP Temperature 36.2 C (97.2 F) 04/26/2020 3:29 PM FINISHER HOT STRIP Respiratory Rate 20 04/26/2020 3:29 PM FINISHER HOT STRIP Oxygen Saturation 99% 04/26/2020 3:29 PM FINISHER HOT STRIP Inhaled Oxygen Concentration - - Weight 88 kg (194 lb) 04/26/2020 3:29 PM FINISHER HOT STRIP Height 177.8 cm (5' 10) 04/26/2020 3:29 PM FINISHER HOT STRIP Body Mass Index 27.84 04/26/2020 3:29 PM FINISHER HOT STRIP Plan of Treatment Health Maintenance Due Date [...] TO INDEPENDENT LIVING General No Joan Herrera production weigher Procedure Name Priority Date/Time Associated Diagnosis Comments COLONOSCOPY Routine 04/19/2020 9:53 AM FINISHER HOT STRIP from Last 3 Months or Most Recently Relevant to Health Maintenance Insurance [facility] Advance Directives * Full Code (Latest Code Status on File) Date Activated Date Inactivated Comments 12/01/2019 10:22 PM 12/04/2019 8:46 PM Care Teams Data Warehouse Administrator Relationship Specialty Start Date End Date Oscar Cesar MD [address] [place] [address] PCP - General INTERNAL MEDICINE 12/01/19
== END 2025-02-27 17:15 | disposition home or self-care (01) ==
PROVIDERS: PCP Internal Medicine; Visit Provider Internal Medicine
DX: R07.89 Other chest pain (principal)
CPT/HCPCS: 71101